=== PATIENT | female | born 1990 ===

== ENCOUNTER 2016-10-03 22:50 | Inpatient (IN) | payer OTHER ==
[2016-10-04] MEDS ORDERED: Sodium Chloride 0.9% 1,000 ML IV STA (00:27)
[2016-10-04 00:52] LABS: BASO % 0.3 % (0.0-2.0); EOS # 0.1 K/uL (0.0-0.7); EOS % 0.8 % (0.0-4.0); HEMATOCRIT 39.6 % (34.0-47.0); LYMPH # 1.7 K/uL (1.0-4.3); LYMPH % 14.2 % (20.0-40.0); MEAN CELL VOLUME 88.1 fl (81.0-99.0); MEAN CORPUSCULAR HEMOGLOBIN 29.5 pg (27.0-31.0); MEAN CORPUSCULAR HGB CONC 33.5 g/dL (33.0-37.0); MEAN PLATELET VOLUME 9.2 fl (7.2-11.7); MONO # 0.6 K/uL (0.0-0.8); MONO % 4.7 % (0.0-10.0); NEUT # 9.6 K/uL (1.8-7.0); RED CELL DISTRIBUTION WIDTH 12.9 % (11.5-14.5)
[2016-10-04 01:03] LABS: ALKALINE PHOSPHATASE 68 U/L (38-126); ALT/SGPT 58 U/L (9-52); AST/SGOT 41 U/L (14-36); BILIRUBIN,TOTAL 1.2 mg/dl (0.2-1.3); BLOOD UREA NITROGEN 9 mg/dl (7-17); CALCIUM 9.4 mg/dL (8.4-10.2); CARBON DIOXIDE 23 mmol/L (22-30); CHLORIDE 105 mmol/L (98-107); GFR AFRICAN-AMERICAN > 60; GLUCOSE,RANDOM 101 mg/dL (65-105); LIPASE 74 U/L (23-300); POTASSIUM 4.3 MMOL/L (3.6-5.0); SODIUM 144 mmol/l (132-148); TOTAL PROTEIN 8.2 G/DL (6.3-8.2)
--- NOTE | 2016-10-04 03:23 | ED PDOC ---
HPI: Abdomen Time Seen by Provider: 10/03/16 23:44 Chief Complaint (Nursing): Abdominal Pain Chief Complaint (Provider): Abdominal Pain History Per: Patient History/Exam Limitations: no limitations Onset/Duration Of Symptoms: Days (2) Current Symptoms Are (Timing): Still Present Severity: Moderate Location Of Pain/Discomfort: Diffuse Associated Symptoms: Nausea, Vomiting Additional Complaint(s): Pati Das is a 26 y/o female presenting to the ER on 10/04/2016 with complaints of diffuse abdominal pain x2 days. Patient states abdominal pain today resembles a prior presentation a few years ago when she was diagnosed with obstruction, prompting a visit to the ED. Associated symptoms include nausea and vomiting. Reports bowel movements are normal. Of note, patient reports having an appendectomy performed 5 days ago for a perforated appendix. Past Medical History Reviewed: Historical Data, Nursing Documentation, Vital Signs Vital Signs: Last Vital Signs Temp 98.3 F 10/03/16 23:36 Pulse 70 10/03/16 23:36 Resp 18 10/03/16 23:36 BP 129/75 10/03/16 23:36 Pulse Ox 100 10/04/16 05:27 - Surgical History Surgical History: Appendectomy - Family History Family History: States: Unknown Family Hx - Social History Current smoker - smoking cessation education provided: No Alcohol: None Drugs: Denies - Allergies Allergies/Adverse Reactions: Allergies Allergy/AdvReac Type Severity Reaction Status Date / Time No Known Allergies Allergy Verified 03/04/14 21:17 Review of Systems ROS Statement: Except As Marked, All Systems Reviewed And Found Negative Constitutional: Negative for: Fever Gastrointestinal: Positive for: Nausea, Vomiting, Abdominal Pain (diffuse ) Physical Exam - Reviewed Nursing Documentation Reviewed: Yes Vital Signs Reviewed: Yes - Physical Exam Appears: Positive for: Non-toxic, No Acute Distress Head Exam: Positive for: ATRAUMATIC, NORMOCEPHALIC Skin: Positive for: Normal Color, Warm, Dry Eye Exam: Positive for: Normal appearance ENT: Positive for: Normal ENT Inspection Neck: Positive for: Normal, Painless ROM, Supple Cardiovascular/Chest: Positive for: Regular Rate, Rhythm. Negative for: Murmur Respiratory: Positive for: Normal Breath Sounds. Negative for: Wheezing, Respiratory Distress Gastrointestinal/Abdominal: Positive for: Tenderness (diffuse ), Distended ( mild ), Other (hyperactive bowel sounds ) Extremity: Positive for: Normal ROM. Negative for: Deformity, Swelling Neurologic/Psych: Positive for: Alert, Oriented (x3). Negative for: Motor/ Sensory Deficits - Laboratory Results Result Diagrams: 10/04/16 00:48 10/04/16 00:48 - ECG O2 Sat by Pulse Oximetry: 100 Medical Decision Making Medical Decision Makin:44 Initial Impression- Abdominal Pain Initial Plan- * US Abdomen * Urine * Urine Dip * Lipase * Morphine 4 mg IV * Sodium Chloride * Toradol 15 mg IVP US Abdomen reviewed, shows obstructed air/fluid pattern. CT scan has been ordered. Pt was re-evaluated. Reports improved condition after toradol. Labs reviewed, all WNL. 0520 - Pt reports return of pain. Morphine ordered. SBO on CT. Discussed admission with Dr. Chicas. Documented by Zandra Alfaro, acting as a scribe for Faviola Cerrato PA-C. All medical record entries made by the Scribe were at my direction and personally dictated by me. I have reviewed the chart and agree that the record accurately reflects my personal performance of the history, physical exam, medical decision making, and the department course for this patient. I have also personally directed, reviewed, and agree with the discharge instructions and disposition. Disposition - Clinical Impression Clinical Impression: Small bowel obstruction - Patient ED Disposition Is Patient to be Admitted: Yes Counseled Patient/Family Regarding: Diagnosis - Disposition Disposition Time: 05:53 Condition: STABLE - Pt Status Changed To: Hospital Disposition Of: Inpatient - Admit Certification Admit to Inpatient:: After my assessment, the patient will require hospitalization for at least two midnights. This is because of the severity of symptoms shown, intensity of services needed, and/or the medical risk in this patient being treated as an outpatient. - POA Present On Arrival: None
[2016-10-04] MEDS ORDERED: Iohexol 300 50 ML ONE (04:42)
[2016-10-04] MEDS ORDERED: Sodium Chloride 0.9% 50 ML IV ONE (04:43)
--- NOTE | 2016-10-04 05:59 | CP.PCM.HP ---
History of Present Illness - History of Present Illness History of Present Illness: PCP: None Chief Complaint: Abdominal Pain/vomiting HPI: 26 years old female with Hx of Perforated Appendectomy in 2010 and SBO in 2011 treated conservatively with NG tube suctioning, comes with 3 days of intermittent,crampy across the left and right upper quadrants of the abdomen.The pain increases if she eats or change her position, it has the sensation as when she had the prior SBO.She induced vomiting because of the nausea and no spontaneous vomiting. She had her last bowel movement on the AM of this admission. No Fever, dysuria nor urinary frequency. no Alcohol nor hx of pancreatitis. PMH: No chronic diseases PSH: Perforated Appendectomy 01/31/2011; SBO 03/12/2011 with conservative management. SH: no Alconol use; no smoking; No illegal drug use; live with FH: No known family hx Allergies: NKDA Present on Admission - Present on Admission Any Indicators Present on Admission: No History of DVT/PE: No History of Uncontrolled Diabetes: No Urinary Catheter: No Decubitus Ulcer Present: No Review of Systems - Constitutional Constitutional: absent: Anorexia, Chills, Fatigue, Fever, Headache - EENT Eyes: absent: Diplopia, Floaters, Photophobia, Requires Corrective Lenses, Sees Flashes, Other Visual Disturbances Ears: absent: Decreased Hearing, Ear Discharge, Ear Pain, Tinnitus Nose/Mouth/Throat: absent: Epistaxis, Nasal Congestion, Nasal Discharge, Sinus Pain, Sinus Pressure, Sore Throat - Cardiovascular Cardiovascular: absent: Chest Pain, Dyspnea, Edema, Orthopnea - Respiratory Respiratory: absent: Cough, Dyspnea, Wheezing - Gastrointestinal Gastrointestinal: Abdominal Pain, Nausea, Vomiting. absent: Diarrhea - Genitourinary Genitourinary: absent: Dysuria, Hematuria, Urinary Frequency, Freq UTI - Musculoskeletal Musculoskeletal: absent: Abnormal Gait, Arthralgias - Integumentary Integumentary: absent: Pruritus, Rash, Skin Ulcer, Sores, Striae, Swelling - Neurological Neurological: absent: Dizziness, Focal Weakness, Headaches, Vertigo - Psychiatric Psychiatric: absent: Anxiety, Depression, Panic Attacks - Endocrine Endocrine: absent: Palpitations, Polydipsia, Polyphagia, Polyuria - Hematologic/Lymphatic Hematologic: absent: Easy Bleeding, Easy Bruising Past Patient History - Past Medical History & Family History Past Medical History?: Yes - Past Social History Smoking Status: Never Smoked Chewing Tobacco Use: No Cigar Use: No Alcohol: None Drugs: Denies Home Situation {Lives}: With Family - CARDIAC Hx Cardiac Disorders: No - PULMONARY Hx Respiratory Disorders: No - NEUROLOGICAL Hx Neurological Disorder: No - HEENT Hx HEENT Problems: No - RENAL Hx Chronic Kidney Disease: No - ENDOCRINE/METABOLIC Hx Endocrine Disorders: No - HEMATOLOGICAL/ONCOLOGICAL Hx Blood Disorders: No - INTEGUMENTARY Hx Dermatological Problems: No - MUSCULOSKELETAL/RHEUMATOLOGICAL Hx Musculoskeletal Disorders: No - GASTROINTESTINAL Hx Gastrointestinal Disorders: No - GENITOURINARY/GYNECOLOGICAL Hx Genitourinary Disorders: No - PSYCHIATRIC Hx Psychophysiologic Disorder: No Hx Substance Use: No - SURGICAL HISTORY Hx Surgeries: Yes Hx Appendectomy: Yes - ANESTHESIA Hx Anesthesia: Yes Hx Anesthesia Reactions: No Meds Allergies/Adverse Reactions: Allergies Allergy/AdvReac Type Severity Reaction Status Date / Time No Known Allergies Allergy Verified 03/04/14 21:17 Physical Exam - Constitutional Appears: No Acute Distress - Head Exam Head Exam: ATRAUMATIC, NORMAL INSPECTION, NORMOCEPHALIC - Eye Exam Eye Exam: EOMI, Normal appearance Pupil Exam: NORMAL ACCOMODATION, PERRL - ENT Exam ENT Exam: Mucous Membranes Moist, Normal Exam, Normal External Ear Exam, Normal Oropharynx - Neck Exam Neck exam: Positive for: Full Rom, Normal Inspection. Negative for: Lymphadenopathy, Tenderness - Respiratory Exam Respiratory Exam: Clear to Auscultation Bilateral. absent: Rales, Rhonchi, Wheezes - Cardiovascular Exam Cardiovascular Exam: REGULAR RHYTHM, RRR, +S1, +S2. absent: Gallop, Rubs - GI/Abdominal Exam Additional comments: Flat, Soft Decreased owel sounds, no guarding, no rebound tenderness. - Rectal Exam Rectal Exam: Deferred - Extremities Exam Extremities exam: Positive for: full ROM, normal inspection. Negative for: calf tenderness, pedal edema - Back Exam Back exam: NORMAL INSPECTION. absent: CVA tenderness (L), CVA tenderness (R) - Neurological Exam Neurological exam: Alert, CN II-XII Intact, Oriented x3, Reflexes Normal - Psychiatric Exam Psychiatric exam: Normal Affect, Normal Mood - Skin Skin Exam: Dry, Intact, Normal Color, Warm Results - Vital Signs Recent Vital Signs: Last Vital Signs Temp 98.3 F 10/03/16 23:36 Pulse 70 10/03/16 23:36 Resp 18 10/03/16 23:36 BP 129/75 10/03/16 23:36 Pulse Ox 100 10/04/16 05:53 - Labs Result Diagrams: 10/04/16 00:48 10/04/16 00:48 Labs: Laboratory Results - last 24 hr 10/04/16 00:48 WBC 12.0 H RBC 4.49 Hgb 13.2 Hct 39.6 MCV 88.1 MCH 29.5 MCHC 33.5 RDW 12.9 Plt Count 251 MPV 9.2 Neut % (Auto) 80.0 H Lymph % (Auto) 14.2 L [place] % (Auto) 4.7 Eos % (Auto) 0.8 Baso % (Auto) 0.3 Neut # 9.6 H Lymph # 1.7 [place] # 0.6 Eos # 0.1 Baso # 0.0 Sodium 144 Potassium 4.3 Chloride 105 Carbon Dioxide 23 Anion Gap 21 H BUN 9 Creatinine 0.6 L Est GFR ( Amer) > 60 Est GFR (Non-Af Amer) > 60 Random Glucose 101 Calcium 9.4 Total Bilirubin 1.2 AST 41 H ALT 58 H Alkaline Phosphatase 68 Total Protein 8.2 Albumin 4.0 Globulin 4.1 H Albumin/Globulin Ratio 1.0 Lipase 74 - Imaging and Cardiology CT scan - abdomen Status: Report reviewed by me Additional comment: FINDINGS: Lower thorax: No acute findings. ABDOMEN: Liver: Unremarkable. No mass. Gallbladder and bile ducts: Unremarkable. No calcified stones. No ductal dilation. Pancreas: Unremarkable. No mass. No ductal dilation. Spleen: Unremarkable. No splenomegaly. Adrenals: Unremarkable. No mass. Kidneys and ureters: Incidental note of accessory retroaortic left renal vein. No hydronephrosis. Stomach and bowel: Mild distention of the stomach with fluid and food. Mildly distended segments of fluid-filled small bowel with air-fluid levels. The distal small bowel is collapsed and findings are consistent with small bowel obstruction. There is a point of transition in the central pelvis near midline. No mucosal thickening. Appendix: There are no changes of appendicitis. A normal appendix is not seen. PELVIS: Bladder: Unremarkable. No mass. Reproductive: Unremarkable as visualized. ABDOMEN and PELVIS: Intraperitoneal space: Minimal free fluid in the pelvis with a Hounsfield measurement of 15. No free air. Bones/joints: No acute fracture. No dislocation. Soft tissues: Unremarkable. Vasculature: See above. Lymph nodes: Unremarkable. No enlarged lymph nodes. IMPRESSION: 1. Small bowel obstruction. There is a point of transition in the central pelvis near midline and likely reflects an adhesion. 2. Minimal free fluid in the pelvis which is likely reactive. US - abdomen Status: Report reviewed by me Additional comment: FINDINGS: Liver: The liver demonstrates no focal defects and measures 13.3 cm. There is hepatopetal portal flow. No intrahepatic bile duct dilation. Gallbladder: The gallbladder demonstrates no wall thickening measuring 3 mm. No gallstones are identified. There is a negative sono Guerin's sign. Common bile duct: The CBD measures 3 mm. No stones. No dilation. Pancreas: The pancreas is grossly normal. Right kidney: The right kidney is normal measuring 10.4 cm. No stones. No hydronephrosis. Aorta: The aorta is of normal size. No aneurysm. Inferior vena cava: The IVC is patent. IMPRESSION: Negative right upper quadrant sonogram. Assessment & Plan - Assessment and Plan (Free Text) Assessment: #. SBO #. Leukocytosis Plan: 26 years old female with Hx of Perforated Appendectomy in 2010 and SBO in 2012 treated conservatively with NG tube suctioning, comes with 3 days of intermittent,crampy pain across the left and right upper quadrants of the abdomen.The pain increases if she eats or change her position, it has the sensation as when she had the prior SBO.She induced vomiting because of the nausea and no spontaneous vomiting. She had her last bowel movement on the AM of this admission. #. SBO Most likely partial obstruction as the patient had a bowel movement on the second day of the abdominal pains. - consult Surgery Dr Spence - NPO - IV fluids - Pain management - NG tube if patient continues to vomit. - follow X ray of Obstructive series, Erect and supine abdomen. #. Leukocytosis - follow WBC #. Stress ulcer prophylaxis with Pepcid. #. DVT prophylaxis with SCD #. Code status: Full - Date & Time Date: 10/04/16 Time: 05:59
[2016-10-04] MEDS: Lactated Ringer's 1,000 ML IV SCH ×3 (06:44→22:57)
--- NOTE | 2016-10-04 07:43 | CP.PCM.CON ---
<Aaron Morgan - Last Filed: 10/04/16 07:32> History of Present Illness - History of Present Illness History of Present Illness: General Surgery Re: SBO HPI: 26F presented to ED c/o general abdominal pain x 2 days. She induced emesis 1 time with some relief. Last BM was yesterday evening and was normal. Pain is similar to a prior episode of SBO she had 4 years ago and this is why she came to the ED. At that time, she was treated with NGT and the problem resolved. Currently her pain is controlled with meds and her only other complaint is about a chronic skin condition she has had for years. PMH: Skin rash resembling psoriasis PSH: Ex lap for perforated appendix SH: Occasional EtOH, No tobacco or drug use All: NKDA Meds: Advil Review of Systems - Review of Systems All systems: reviewed and no additional remarkable complaints except (as per HPI ) Past Patient History - Past Social History Alcohol: None Drugs: Denies - PSYCHIATRIC Hx Substance Use: No - SURGICAL HISTORY Hx Appendectomy: Yes Meds Allergies/Adverse Reactions: Allergies Allergy/AdvReac Type Severity Reaction Status Date / Time No Known Allergies Allergy Verified 10/07/16 10:41 - Medications Medications: Current Medications Lactated Ringer's (Lactated Ringer's) 1,000 mls @ 125 mls/hr IV .Q8H FAY Last Admin: 10/04/16 06:44 Dose: 125 mls/hr Ketorolac Tromethamine (Toradol) 30 mg IVP Q6 PRN PRN Reason: Pain, severe (8-10) Ketorolac Tromethamine (Toradol) 15 mg IVP Q6 PRN PRN Reason: Pain, moderate (4-7) Physical Exam - Constitutional Appears: Non-toxic, No Acute Distress - Head Exam Head Exam: ATRAUMATIC, NORMOCEPHALIC - Eye Exam Eye Exam: EOMI. absent: Scleral icterus - ENT Exam ENT Exam: Mucous Membranes Moist Additional comments: trachea midline - Respiratory Exam Respiratory Exam: NORMAL BREATHING PATTERN. absent: Respiratory Distress - Cardiovascular Exam Cardiovascular Exam: RRR, +S1, +S2 - GI/Abdominal Exam GI & Abdominal Exam: Guarding (mild), Soft, Tenderness (diffuse). absent: Distended, Firm, Rigid Additional comments: midline scar - Rectal Exam Rectal Exam: Deferred - Extremities Exam Extremities exam: Positive for: pedal pulses present. Negative for: calf tenderness, pedal edema - Back Exam Back exam: absent: CVA tenderness (L), CVA tenderness (R) - Neurological Exam Neurological exam: Alert, Oriented x3 - Psychiatric Exam Psychiatric exam: Normal Affect, Normal Mood - Skin Skin Exam: Dry, Warm Results - Vital Signs Recent Vital Signs: Last Vital Signs Temp 99 F 10/04/16 06:19 Pulse 70 10/04/16 06:19 Resp 16 10/04/16 06:19 BP 130/89 10/04/16 06:19 Pulse Ox 98 10/04/16 06:19 - Labs Result Diagrams: 10/04/16 00:48 10/04/16 00:48 - Imaging and Cardiology CT scan - abdomen Status: Image reviewed by me, Report reviewed by me Assessment & Plan - Assessment and Plan (Free Text) Assessment: 26F with SBO likely 2/2 adhesions Plan: NPO IVF Zofran Analgesia NGT if vomiting occurs D/W Dr. Bebe Morgan PGY3 <Rio Spence B - Last Filed: 10/09/16 10:42> Results - Vital Signs Recent Vital Signs: Last Vital Signs Temp 99.3 F 10/06/16 16:12 Pulse 71 10/06/16 16:12 Resp 20 10/06/16 16:12 BP 115/72 10/06/16 16:12 Pulse Ox 98 10/06/16 16:12 - Labs Result Diagrams: 10/05/16 08:21 10/05/16 08:21 Attending/Attestation - Attestation I have personally seen and examined this patient.: Yes I have fully participated in the care of the patient.: Yes I have reviewed all pertinent clinical information: Yes Notes (Text): 10/09/16 10:42 Pt was seen and examined at bedside on 10/04/16 Agree with above note and assessment Pt with PSBO Gradually improving C.w current mx Plan d.w pt in detail Risk and benefit explained in detail.
--- NOTE | 2016-10-04 09:31 | CT ---
PROCEDURE: CT Abdomen and Pelvis with contrast HISTORY: obstruction on x-ray, abdominal pain, nausea COMPARISON: Comparison is made to the previous study dated 05/25/2012 TECHNIQUE: Axial and reformatted coronal and sagittal CT images of the abdomen and pelvis were obtained after IV contrast administration. Contrast dose: 95 mL of Omnipaque 300 Radiation dose: Total exam DLP = 1067.66 mGy-cm. This CT exam was performed using one or more of the following dose reduction techniques: Automated exposure control, adjustment of the mA and/or kV according to patient size, and/or use of iterative reconstruction technique. FINDINGS: LOWER THORAX: Unremarkable. LIVER: Unremarkable. No gross lesion or ductal dilatation. GALLBLADDER AND BILE DUCTS: Unremarkable. PANCREAS: Unremarkable. No gross lesion or ductal dilatation. SPLEEN: Unremarkable. ADRENALS: Unremarkable. No mass. KIDNEYS AND URETERS: Unremarkable. No hydronephrosis. No solid mass. VASCULATURE: Unremarkable. No aortic aneurysm. BOWEL: There is high-grade small bowel obstruction. The point of transition is likely at the central mid to upper pelvis at the midline. The distal small bowel loops and the large bowel are collapsed. No evidence of pneumatosis or free air. No evidence of air in the portal vein. APPENDIX: The appendix is not visualized. Correlate clinically for possible prior appendectomy. PERITONEUM: There is a small amount of free fluid in the pelvis. No evidence of free air. LYMPH NODES: Unremarkable. No enlarged lymph nodes. BLADDER: Unremarkable. REPRODUCTIVE: Unremarkable. BONES: No acute fracture. OTHER FINDINGS: None. IMPRESSION: Findings suggestive of high-grade small bowel obstruction. transitional point is seen at the midline mid to upper pelvis likely due to adhesions. Small amount of free fluid in the lower abdomen and pelvis. No evidence of pneumatosis intestinalis or free air. No other acute pathology noted in the abdomen and pelvis. Preliminary report was submitted by [facility].
--- NOTE | 2016-10-04 10:43 | US ---
HISTORY: Epigastric and right upper quadrant pain. COMPARISON: None. TECHNIQUE: Sonographic evaluation of the abdomen. FINDINGS: LIVER: Measures 13.3 cm. Patent portal vein. Portal venous flow: Hepatopetal. Unremarkeable echogenicity of the liver parenchyma. No mass. No intrahepatic bile duct dilatation. GALLBLADDER: Unremarkable. No gallstones. COMMON BILE DUCT: Measures 2.9 mm. No stones. No dilatation. PANCREAS: Unremarkable as visualized. No mass. No ductal dilatation. RIGHT KIDNEY: Measures 4.1 x 10.4cm. Normal echogenicity. No calculus, mass, or hydronephrosis. AORTA: No aneurysmal dilatation. IVC: Unremarkable. OTHER FINDINGS: None. IMPRESSION: No significant or acute findings to account for/ related to the clinical presentation. Concordant results (preliminary interpretation) provided by [facility]. Procedure Completed: 03:12. Preliminary ([facility]) Report: Dictated and Authenticated: 03:46. Final Interpretation: 10:41. October 04, 2016.
--- NOTE | 2016-10-04 13:22 | RAD ---
HISTORY: diffuse abdominal pain, hx obstruction COMPARISON: 05/26/2012. Abdominal series. October 04, 2016. CT abdomen and pelvis. FINDINGS: BOWEL: Small bowel dilatation disproportionate to that seen in the colon. Likely early/incomplete small bowel obstruction. BONES: Normal. OTHER FINDINGS: None. IMPRESSION: Early/incomplete small bowel obstruction. Findings are better appreciated on CT abdomen and pelvis performed 05:44. October 04, 2016.
[2016-10-05] MEDS: Lactated Ringer's 1,000 ML IV SCH ×2 (01:29→06:36)
--- NOTE | 2016-10-05 07:55 | CP.PCM.PN ---
<Nathan Chen - Last Filed: 10/05/16 07:56> Subjective - Date & Time of Evaluation Date of Evaluation: 10/05/16 Time of Evaluation: 06:50 - Subjective Subjective: General Surgery-Progress Note Pt S&E at bedside. Overnight bowel movements x2, diarrhea in consistency. Mild LLQ pain controlled with pain medication. Tolerating CLD. Objective - Vital Signs/Intake and Output Vital Signs (last 24 hours): Temp Pulse Resp BP Pulse Ox 98.8 F 67 20 118/74 97 10/04/16 21:20 10/04/16 21:20 10/04/16 21:20 10/04/16 21:20 10/04/16 21:20 - Medications Medications: Current Medications Lactated Ringer's (Lactated Ringer's) 1,000 mls @ 125 mls/hr IV .Q8H FAY Last Admin: 10/05/16 06:36 Dose: Not Given Ketorolac Tromethamine (Toradol) 30 mg IVP Q6 PRN PRN Reason: Pain, severe (8-10) Ketorolac Tromethamine (Toradol) 15 mg IVP Q6 PRN PRN Reason: Pain, moderate (4-7) Last Admin: 10/05/16 06:17 Dose: 15 mg Morphine Sulfate (Morphine) 4 mg IVP Q4 PRN PRN Reason: Pain, severe (8-10) Ondansetron HCl (Zofran Inj) 4 mg IVP Q4 PRN PRN Reason: Nausea/Vomiting - Constitutional Appears: Non-toxic, No Acute Distress - Head Exam Head Exam: ATRAUMATIC, NORMAL INSPECTION - Eye Exam Eye Exam: EOMI, Normal appearance - Respiratory Exam Respiratory Exam: NORMAL BREATHING PATTERN. absent: Chest Wall Tenderness, Decreased Breath Sounds - GI/Abdominal Exam GI & Abdominal Exam: Soft, Tenderness (LLQ). absent: Distended, Guarding, Rigid - Extremities Exam Extremities Exam: Normal Inspection. absent: Pedal Edema - Neurological Exam Neurological Exam: Alert, Awake, Oriented x3 - Psychiatric Exam Psychiatric exam: Normal Affect, Normal Mood - Skin Skin Exam: Intact, Normal Color, Warm Assessment and Plan - Assessment and Plan (Free Text) Assessment: 26F with SBO likely 2/2 adhesions Plan: CLD IVF Zofran prn nausea Analgesia Continue to monitor D/W Dr. Spence <Rio Spence - Last Filed: 10/09/16 10:47> Objective - Vital Signs/Intake and Output Vital Signs (last 24 hours): Temp Pulse Resp BP Pulse Ox 99.3 F 71 20 115/72 98 10/06/16 16:12 10/06/16 16:12 10/06/16 16:12 10/06/16 16:12 10/06/16 16:12 - Labs Labs: 10/05/16 08:21 10/05/16 08:21 Attending/Attestation - Attestation I have personally seen and examined this patient.: Yes I have fully participated in the care of the patient.: Yes I have reviewed all pertinent clinical information, including history, physical exam and plan: Yes Notes (Text): 10/09/16 10:47 Pt was seen and examined at bedside on 10/05/16 Agree with above note and assessment Pt with resolving PSBO Pt can be DC home tomorrow Plan dRenettaw pt in detail Risk and benefit explained in detail.
[2016-10-05 08:34] LABS: BASO % 0.3 % (0.0-2.0); EOS # 0.1 K/uL (0.0-0.7); EOS % 1.2 % (0.0-4.0); HEMATOCRIT 35.2 % (34.0-47.0); LYMPH # 2.4 K/uL (1.0-4.3); LYMPH % 34.7 % (20.0-40.0); MEAN CELL VOLUME 87.5 fl (81.0-99.0); MEAN CORPUSCULAR HGB CONC 34.2 g/dL (33.0-37.0); MEAN PLATELET VOLUME 9.3 fl (7.2-11.7); MONO # 0.5 K/uL (0.0-0.8); MONO % 7.3 % (0.0-10.0); NEUT # 3.8 K/uL (1.8-7.0); NEUT % 56.5 % (50.0-75.0); NRBC % 0.1 % (0.0-0.0); RED CELL DISTRIBUTION WIDTH 12.9 % (11.5-14.5); WHITE BLOOD COUNT 6.8 K/uL (4.8-10.8)
[2016-10-05 08:44] LABS: ALKALINE PHOSPHATASE 58 U/L (38-126); ALT/SGPT 47 U/L (9-52); AST/SGOT 29 U/L (14-36); BLOOD UREA NITROGEN 7 mg/dl (7-17); CALCIUM 8.9 mg/dL (8.4-10.2); CARBON DIOXIDE 26 mmol/L (22-30); CHLORIDE 106 mmol/L (98-107); GFR AFRICAN-AMERICAN > 60; GLUCOSE,RANDOM 85 mg/dL (65-105); POTASSIUM 4.4 MMOL/L (3.6-5.0); SODIUM 143 mmol/l (132-148); TOTAL PROTEIN 6.6 G/DL (6.3-8.2)
--- NOTE | 2016-10-05 14:53 | RAD ---
PROCEDURE: Radiographs of the chest and abdomen (obstructive series) now HISTORY: Small bowel obstruction. COMPARISON: October 04, 2016. CT abdomen and pelvis. TECHNIQUE: AP radiograph of the chest, with upright and supine radiographs of the abdomen. FINDINGS: CHEST: Lungs: Clear. Cardiovascular: Normal size heart. No pulmonary vascular congestion. Pleura: No pleural fluid. No pneumothorax. Other findings: None. ABDOMEN AND PELVIS: Bowel: Persistent small bowel obstruction. Disproportionate dilatation of proximal and mid small bowel loops compared to decompressed colon. No free air Free air: None. Bones: Unremarkable. Other findings: None. IMPRESSION: Persistent approximately stable small bowel obstruction.
--- NOTE | 2016-10-05 18:35 | CP.PCM.PN ---
Subjective - Date & Time of Evaluation Date of Evaluation: 10/05/16 Time of Evaluation: 12:00 - Subjective Subjective: No fevr abd pain better no N/V had BM this am no CP no SOB Objective - Vital Signs/Intake and Output Vital Signs (last 24 hours): Temp Pulse Resp BP Pulse Ox 98 F 62 18 112/73 100 10/05/16 17:09 10/05/16 17:09 10/05/16 17:09 10/05/16 17:09 10/05/16 17:09 - Medications Medications: Current Medications Lactated Ringer's (Lactated Ringer's) 1,000 mls @ 125 mls/hr IV .Q8H FAY Last Admin: 10/05/16 06:36 Dose: Not Given Ketorolac Tromethamine (Toradol) 30 mg IVP Q6 PRN PRN Reason: Pain, severe (8-10) Ketorolac Tromethamine (Toradol) 15 mg IVP Q6 PRN PRN Reason: Pain, moderate (4-7) Last Admin: 10/05/16 06:17 Dose: 15 mg Morphine Sulfate (Morphine) 4 mg IVP Q4 PRN PRN Reason: Pain, severe (8-10) Ondansetron HCl (Zofran Inj) 4 mg IVP Q4 PRN PRN Reason: Nausea/Vomiting - Labs Labs: 10/05/16 08:21 10/05/16 08:21 - Constitutional Appears: No Acute Distress - Head Exam Head Exam: NORMAL INSPECTION, NORMOCEPHALIC - Eye Exam Eye Exam: EOMI, Normal appearance, PERRL Pupil Exam: NORMAL ACCOMODATION - ENT Exam ENT Exam: Mucous Membranes Moist, Normal External Ear Exam - Neck Exam Neck Exam: Full ROM. absent: Meningismus - Respiratory Exam Respiratory Exam: NORMAL BREATHING PATTERN. absent: Respiratory Distress - Cardiovascular Exam Cardiovascular Exam: REGULAR RHYTHM, +S1, +S2 - GI/Abdominal Exam GI & Abdominal Exam: Soft, Normal Bowel Sounds. absent: Tenderness - Extremities Exam Extremities Exam: Full ROM, Normal Capillary Refill, Normal Inspection. absent : Calf Tenderness, Pedal Edema - Back Exam Back Exam: Full ROM, NORMAL INSPECTION. absent: CVA tenderness (L), CVA tenderness (R), paraspinal tenderness - Neurological Exam Neurological Exam: Alert, Awake, CN II-XII Intact, Normal Gait, Oriented x3 Neuro motor strength exam: Left Upper Extremity: 5, Right Upper Extremity: 5, Left Lower Extremity: 5, Right Lower Extremity: 5 - Psychiatric Exam Psychiatric exam: Normal Affect, Normal Mood - Skin Skin Exam: Dry, Normal Color, Warm Assessment and Plan (1) SBO (small bowel obstruction) Status: Acute - Assessment and Plan (Free Text) Assessment: 26 years old female with Hx of Perforated Appendectomy in 2010 and SBO in 2011 treated conservatively with NG tube suctioning, comes with 3 days of intermittent,crampy pain across the left and right upper quadrants of the abdomen.The pain increases if she eats or change her position similar to previous pain when she had SBPO. 1. High Grade SBO - CT of abd : High grade SBO - consulted Surgery Dr Spence - Pt's pain better today and had some BM this am - will start Clear liquid diet - IV fluids hydration - Pain management - NG tube if patient vomits - Obstructive series, Erect and supine abdomen - to ff up 2. Leukocytosis likely reactive - WBC ct normalized #. Stress ulcer prophylaxis with Pepcid. #. DVT prophylaxis with SCD #. Code status: Full
[2016-10-05] MEDS ORDERED: Lactated Ringer's 1,000 ML IV SCH (18:49)
[2016-10-06 08:09] VITALS: RESP 20; O2SAT 98
--- NOTE | 2016-10-06 10:00 | CP.PCM.PN ---
Subjective - Date & Time of Evaluation Date of Evaluation: 10/06/16 Time of Evaluation: 09:00 - Subjective Subjective: General Surgery-Progress Note Pt S&E at bedside. Overnight bowel movements x2, diarrhea in consistency. Mild LLQ pain controlled with pain medication. Tolerating regular diet without issue. Objective - Vital Signs/Intake and Output Vital Signs (last 24 hours): Temp Pulse Resp BP Pulse Ox 98.5 F 88 20 105/66 98 10/06/16 08:08 10/06/16 08:08 10/06/16 08:08 10/06/16 08:08 10/06/16 08:08 - Medications Medications: Current Medications Ketorolac Tromethamine (Toradol) 30 mg IVP Q6 PRN PRN Reason: Pain, severe (8-10) Ketorolac Tromethamine (Toradol) 15 mg IVP Q6 PRN PRN Reason: Pain, moderate (4-7) Last Admin: 10/06/16 08:09 Dose: 15 mg Morphine Sulfate (Morphine) 4 mg IVP Q4 PRN PRN Reason: Pain, severe (8-10) Ondansetron HCl (Zofran Inj) 4 mg IVP Q4 PRN PRN Reason: Nausea/Vomiting - Labs Labs: 10/05/16 08:21 10/05/16 08:21 - Constitutional Appears: Well, Non-toxic, No Acute Distress - ENT Exam ENT Exam: Mucous Membranes Moist, Normal Exam - Respiratory Exam Respiratory Exam: NORMAL BREATHING PATTERN. absent: Chest Wall Tenderness, Decreased Breath Sounds - GI/Abdominal Exam GI & Abdominal Exam: Soft, Tenderness (mild to LLQ). absent: Distended, Firm, Guarding, Rigid - Neurological Exam Neurological Exam: Alert, Awake, Normal Gait, Oriented x3 - Psychiatric Exam Psychiatric exam: Normal Affect, Normal Mood - Skin Skin Exam: Intact, Normal Color, Warm Assessment and Plan - Assessment and Plan (Free Text) Assessment: 26F with SBO Plan: Pt can continue regular diet. IVF Zofran prn nausea Analgesia Continue to monitor Pt is stable from surgical standpoint for discharge home. Will follow-up with Dr. Sevilla on outpatient basis within 10 days. Instructed is symptoms whoud reappear or worsen present to urgent care facility. D/W Dr. Spence
--- NOTE | 2016-10-06 14:26 | CP.PCM.DIS ---
Provider - Provider Date of Admission: 10/04/16 05:56 Attending physician: Zenon Chicas Primary care physician: Zenon Chicas Consults: Surgery Dr. Suarez Time Spent in preparation of Discharge (in minutes): 40 Hospital Course - Lab Results Lab Results: Most Recent Lab Values WBC 6.8 K/uL (4.8-10.8) 10/05/16 08:21 RBC 4.03 Mil/uL (3.80-5.20) 10/05/16 08:21 Hgb 12.1 g/dL (12.0-16.0) 10/05/16 08:21 Hct 35.2 % (34.0-47.0) 10/05/16 08:21 MCV 87.5 fl (81.0-99.0) 10/05/16 08:21 MCH 30.0 pg (27.0-31.0) 10/05/16 08:21 MCHC 34.2 g/dL (33.0-37.0) 10/05/16 08:21 RDW 12.9 % (11.5-14.5) 10/05/16 08:21 Plt Count 223 K/uL (130-400) 10/05/16 08:21 MPV 9.3 fl (7.2-11.7) 10/05/16 08:21 Neut % (Auto) 56.5 % (50.0-75.0) 10/05/16 08:21 Lymph % (Auto) 34.7 % (20.0-40.0) 10/05/16 08:21 [place] % (Auto) 7.3 % (0.0-10.0) 10/05/16 08:21 Eos % (Auto) 1.2 % (0.0-4.0) 10/05/16 08:21 Baso % (Auto) 0.3 % (0.0-2.0) 10/05/16 08:21 Neut # 3.8 K/uL (1.8-7.0) 10/05/16 08:21 Lymph # 2.4 K/uL (1.0-4.3) 10/05/16 08:21 [place] # 0.5 K/uL (0.0-0.8) 10/05/16 08:21 Eos # 0.1 K/uL (0.0-0.7) 10/05/16 08:21 Baso # 0.0 K/uL (0.0-0.2) 10/05/16 08:21 Sodium 143 mmol/l (132-148) 10/05/16 08:21 Potassium 4.4 MMOL/L (3.6-5.0) 10/05/16 08:21 Chloride 106 mmol/L (98-107) 10/05/16 08:21 Carbon Dioxide 26 mmol/L (22-30) 10/05/16 08:21 Anion Gap 15 (10-20) 10/05/16 08:21 BUN 7 mg/dl (7-17) 10/05/16 08:21 Creatinine 0.7 mg/dL (0.7-1.2) 10/05/16 08:21 Est GFR ( Amer) > 60 10/05/16 08:21 Est GFR (Non-Af Amer) > 60 10/05/16 08:21 Random Glucose 85 mg/dL (65-105) 10/05/16 08:21 Calcium 8.9 mg/dL (8.4-10.2) 10/05/16 08:21 Total Bilirubin 1.0 mg/dl (0.2-1.3) 10/05/16 08:21 AST 29 U/L (14-36) 10/05/16 08:21 ALT 47 U/L (9-52) 10/05/16 08:21 Alkaline Phosphatase 58 U/L (38-126) 10/05/16 08:21 Total Protein 6.6 G/DL (6.3-8.2) 10/05/16 08:21 Albumin 3.3 g/dL (3.5-5.0) L 10/05/16 08:21 Globulin 3.3 gm/dL (2.2-3.9) 10/05/16 08:21 Albumin/Globulin Ratio 1.0 (1.0-2.1) 10/05/16 08:21 Lipase 74 U/L (23-300) 10/04/16 00:48 - Hospital Course Hospital Course: 26 year old female (PMHx Perforated Appendectomy 01/2011 and SBO 11/2011) who was admitted on 10/04/16 for complaint of 3 days of intermittent cramping bilateral upper quadrant area. Obstruction Series upon admission and repeat on 10/05/16 showed small bowel obstruction, no free air, disproportional dilatation of proximal mid-small bowel loops compared to decompressed colon. She had Leukocytosis at 12.0 on 10/04/16 and this resolved on 10/05/16 at 6.8. She was treated with Toradol and Morphine as needed for pain. She was evaluated by Surgery Dr. Spence. She was started on Clear Liquids on 10/05/16 and regular diet earlier today 10/06/16 and she tolerated these without incident (NO n/v). She had 2 soft nonbloody/nonblack bowel movements today and is passing flatus. She has some mild cramping periumbilical pain ("not like in the ER") when she walks that comes and goes. She has been cleared by Surgery for discharge. She was instructed to follow up with Dr. Spence in 10 days and to return to the ER if the pain in the abdomen returns to its original intensity, if she experiences any nausea with vomiting, or has not moved her bowels. ROS: Moved bowels 2x today and passing flatus Tolerated her regular breakfast and lunch without n/v or abdominal pain NO chest pain, NO palpitations, NO SOB/Cough/Wheezing, NO burning/pain with urination, NO lightheadedness/dizziness, NO new changes in vision/eye pain, NO new changes in hearing/ear pain, NO paresthesias, NO edema HEENT: NCA, EOMI, PERRLA, NO cervical lymphadenopathy, NO thyromegaly, Oral Mucosa and Nasal Turbinates are moist Cardio:NS1 and NS2, NO M/R/G Respiratory: CTA B/L, NO R/R/W GI: BSx4, Soft, NT, ND, NO HSM, NO guarding/rebound tenderness (patient is laughing when I palpated her entire abdomen) Ext: Pulses are strong and equal, NO edema, Capillary Refill is 2 seconds. Neuro: CN II through XII are grossly intact The following instructions were explained to the patient and a copy of this discharge summary will be provided to patient: 1). If your pain level in the abdomen returns to the level it was when you came to the emergency room, if you experience nausea/vomiting, then please return to the emergency room 2). If you experience pain with eating regular food then you are advancing your diet too quickly. If this happens then start eating softer foods. 3). You must call the office of Surgeon Dr. Martha Spence [phone] for appointment that should take place in 10 days. Jarrett Hall D.O. Discharge Exam - Head Exam Head Exam: NORMAL INSPECTION, NORMOCEPHALIC Discharge Plan - Follow Up Plan Condition: STABLE Disposition: HOME/ ROUTINE
[2016-10-06 16:12] VITALS: BP 115/72; PULSE 71; TEMP 99.3
== END 2016-10-06 17:07 | disposition home or self-care (01) | DRG 181 ==
LOC: H.ER 22:50 → H.ERHOLD 10-04 05:56 → H.MEDSURG1 10-04 10:22
PROVIDERS: ADMIT Internal Medicine; ATTEND Internal Medicine
DX: K56.5 Intestinal adhesions [bands] with obstruction (postinfection) (principal); D72.829 Elevated white blood cell count, unspecified

== ENCOUNTER 2016-10-07 10:12 | Inpatient (IN) | payer OTHER ==
[2016-10-07 10:20] VITALS: BMI 27.8
[2016-10-07] MEDS ORDERED: Sodium Chloride 0.9% 1,000 ML IV STA (11:04)
[2016-10-07 11:24] LABS: BASO % 0.5 % (0.0-2.0); EOS % 0.4 % (0.0-4.0); HEMATOCRIT 39.9 % (34.0-47.0); LYMPH # 1.2 K/uL (1.0-4.3); LYMPH % 16.7 % (20.0-40.0); MEAN CELL VOLUME 87.4 fl (81.0-99.0); MEAN CORPUSCULAR HEMOGLOBIN 29.4 pg (27.0-31.0); MEAN CORPUSCULAR HGB CONC 33.7 g/dL (33.0-37.0); MEAN PLATELET VOLUME 8.7 fl (7.2-11.7); MONO # 0.4 K/uL (0.0-0.8); MONO % 6.1 % (0.0-10.0); NEUT # 5.6 K/uL (1.8-7.0); NEUT % 76.3 % (50.0-75.0); RED CELL DISTRIBUTION WIDTH 12.9 % (11.5-14.5); WHITE BLOOD COUNT 7.4 K/uL (4.8-10.8)
[2016-10-07 11:40] LABS: ALKALINE PHOSPHATASE 67 U/L (38-126); ALT/SGPT 45 U/L (9-52); AST/SGOT 30 U/L (14-36); BILIRUBIN,TOTAL 1.2 mg/dl (0.2-1.3); BLOOD UREA NITROGEN 9 mg/dl (7-17); CALCIUM 9.4 mg/dL (8.4-10.2); CARBON DIOXIDE 27 mmol/L (22-30); CHLORIDE 102 mmol/L (98-107); GFR AFRICAN-AMERICAN > 60; GLUCOSE,RANDOM 106 mg/dL (65-105); LIPASE 80 U/L (23-300); POTASSIUM 3.9 MMOL/L (3.6-5.0); SODIUM 141 mmol/l (132-148); TOTAL PROTEIN 7.8 G/DL (6.3-8.2)
--- NOTE | 2016-10-07 11:44 | ED PDOC ---
HPI: Abdomen Time Seen by Provider: 10/07/16 10:43 Chief Complaint (Nursing): Abdominal Pain History Per: Patient (presents with c/o nausea and vomiting and upper abd pain for 1 day. She was admitted recently for SBO. Review of record confirms her history) History/Exam Limitations: no limitations Outside of [place] travel?: No Current Symptoms Are (Timing): Still Present Severity: Moderate Past Medical History Reviewed: Historical Data, Nursing Documentation, Vital Signs Vital Signs: Last Vital Signs Temp 98.2 F 10/07/16 10:42 Pulse 92 H 10/07/16 10:42 Resp 20 10/07/16 10:42 BP 117/75 10/07/16 10:42 Pulse Ox 97 10/07/16 11:45 - Medical History PMH: Denies: HIV, Chronic Kidney Disease - Surgical History Surgical History: Appendectomy - Family History Family History: States: Unknown Family Hx - Living Arrangements Living Arrangements: With Family - Allergies Allergies/Adverse Reactions: Allergies Allergy/AdvReac Type Severity Reaction Status Date / Time No Known Allergies Allergy Verified 10/07/16 10:41 Review of Systems ROS Statement: Except As Marked, All Systems Reviewed And Found Negative Constitutional: Negative for: Fever, Chills Gastrointestinal: Positive for: Nausea, Vomiting, Abdominal Pain. Negative for : Diarrhea Genitourinary Female: Negative for: Dysuria, Frequency, Hematuria, Vaginal Discharge, Vaginal Bleeding Musculoskeletal: Negative for: Neck Pain, Shoulder Pain Physical Exam - Reviewed Nursing Documentation Reviewed: Yes Vital Signs Reviewed: Yes - Physical Exam Appears: Positive for: Well, Non-toxic, Uncomfortable Head Exam: Positive for: ATRAUMATIC, NORMAL INSPECTION, NORMOCEPHALIC Skin: Positive for: Normal Color, Warm, DRY Eye Exam: Positive for: Normal appearance ENT: Positive for: Normal ENT Inspection Neck: Positive for: Normal Cardiovascular/Chest: Positive for: Regular Rate, Rhythm Respiratory: Positive for: CNT, Normal Breath Sounds Gastrointestinal/Abdominal: Positive for: Bowel Sounds, Soft, Tenderness ( epigastric area) Back: Positive for: Normal Inspection Extremity: Positive for: Normal ROM Neurologic/Psych: Positive for: Alert, Oriented - Laboratory Results Result Diagrams: 10/07/16 11:20 10/07/16 11:20 - ECG O2 Sat by Pulse Oximetry: 97 Disposition - Clinical Impression Clinical Impression: SBO (small bowel obstruction) - Patient ED Disposition Is Patient to be Admitted: Yes Doctor Will See Patient In The: Hospital - Disposition Disposition: Transfer of Care Disposition Time: 12:30 Condition: GUARDED - Pt Status Changed To: Hospital Disposition Of: Inpatient - Admit Certification Admit to Inpatient:: After my assessment, the patient will require hospitalization for at least two midnights. This is because of the severity of symptoms shown, intensity of services needed, and/or the medical risk in this patient being treated as an outpatient.
[2016-10-07 11:58] LABS: RBC URINE 4 /hpf (0-3); URINE BILIRUBIN NEGATIVE (NEGATIVE); URINE BLOOD NEGATIVE (NEGATIVE); URINE COLOR AMBER (YELLOW); URINE GLUCOSE (UA) NEG (Normal); URINE KETONE NEGATIVE (NEGATIVE); URINE LEUKOCYTE ESTERASE SMALL Leu/uL (Negative); URINE PROTEIN 30 mg/dL (NEGATIVE); WBC URINE 10 /hpf (0-5)
--- NOTE | 2016-10-07 12:21 | RAD ---
PROCEDURE: Radiographs of the chest and abdomen (obstructive series) HISTORY: abdominal pain COMPARISON: No prior. TECHNIQUE: AP radiograph of the chest, with upright and supine radiographs of the abdomen. FINDINGS: CHEST: Lungs: Clear. Cardiovascular: Normal size heart. No pulmonary vascular congestion. Pleura: No pleural fluid. No pneumothorax. Other findings: None. ABDOMEN AND PELVIS: Bowel: There is cashews distension of small bowel loops and differential air-fluid levels. The colon is decompressed. There is stool in the ascending colon. Free air: None. Bones: Unremarkable. Other findings: None. IMPRESSION: Cashews distension of small bowel loops with decompressed colon is concerning for acute small bowel obstruction.
--- NOTE | 2016-10-07 14:08 | CP.PCM.HP ---
History of Present Illness - History of Present Illness History of Present Illness: Hospitalist Admission H&P (Patient was seen and examined at 1:00 PM 10/07/16) PMD: NONE CODE STATUS: FULL CODE. NO Living Will/Advance Directive. Designates Francisco Poon [phone] as her Health Care Proxy. CHIEF COMPLAINT: Abdominal Pain, Nausea 26 year old female (PMHx Perforated Appendectomy 01/2011 and SBO 11/2011) who was admitted on 10/04/16 for complaint of 3 days of intermittent cramping bilateral upper quadrant area. Obstruction Series upon admission and repeat on 10/05/16 showed small bowel obstruction, no free air, disproportional dilatation of proximal mid-small bowel loops compared to decompressed colon. She had Leukocytosis at 12.0 on 10/04/16 and this resolved on 10/05/16 at 6.8. She was treated with Toradol and Morphine as needed for pain. She was evaluated by Surgery Dr. Spence. She was started on Clear Liquids on 10/05/16 and regular diet on 10/06/16 and she tolerated these without incident (NO n/v). She had 2 soft nonbloody/nonblack bowel movements on 10/06/16 and she was passing flatus. She had some mild cramping periumbilical pain ("not like in the ER") when she walks that comes and goes. She was cleared by Surgery for discharge. She was instructed to follow up with Dr. Spence in 10 days and to return to the ER if the pain in the abdomen returns to its original intensity, if she experiences any nausea with vomiting, or has not moved her bowels. After she got home, she was doing fine. Around 8 PM 10/06/16 she tried to eat a potato dish with some small amount of cheese but she felt full after just a few bites. Thirty minutes after this, she started to experiene generalized abdominal pain with the greatest intesity in the epigastric area along with nausea and sensation like something was stuck in her throat. She tried to brush her teeth but this intensified the nausea. She had trouble sleep through the night becuase of the nausea. Then this morning as the nausea, the generalized abdominal pain, the sensation of something stuck in her throat was not better she asked her to drive her back to the [facility] ER. ROS: She had a very small bowel movement last night: NOT black/NOT bloody Nausea and the abdominal pain is better after administration of Zofran in the ER Still feels as if something is stuck in her throat Difficulty with deep respirations Headache last night but not now NO chest pain, NO palpitations, NO SOB/Cough/Wheezing, NO burning/pain with urination, NO lightheadedness/dizziness, NO new changes in vision/eye pain, NO new changes in hearing/ear pain, NO paresthesias, NO edema PMHx: Perforated Appendix 01/2011, SBO 11/2011 (treated successfully with NGT placment) PSHx: Perforated Appendix ALL: NKDA, NO food allergies Medications: NONE at home Social Hx: [facility] [email or web address] [facility] [email or web address], Lives with her , NO tobacco, NO alcohol, NO illicit drugs Family Hx: Mom (Tachcardia, HTN), Dad (HTN), Brother x 2 (Healthy), Sister x 1 ( Healthy) Present on Admission - Present on Admission Any Indicators Present on Admission: Yes History of DVT/PE: No History of Uncontrolled Diabetes: No Urinary Catheter: No Decubitus Ulcer Present: No Review of Systems - Review of Systems Review of Systems: Please see HPI Past Patient History - Past Medical History & Family History Past Medical History?: Yes Pertinent Family History: Please see HPI - Past Social History Smoking Status: Never Smoked - CARDIAC Hx Cardiac Disorders: No - PULMONARY Hx Respiratory Disorders: No - NEUROLOGICAL Hx Neurological Disorder: No - HEENT Hx HEENT Problems: No - RENAL Hx Chronic Kidney Disease: No - ENDOCRINE/METABOLIC Hx Endocrine Disorders: No - HEMATOLOGICAL/ONCOLOGICAL Hx Human Immunodeficiency Virus (HIV): No - INTEGUMENTARY Hx Dermatological Problems: No Other/Comment: red, dry rash left middle knuckle, right pinky and around mouth - MUSCULOSKELETAL/RHEUMATOLOGICAL Hx Musculoskeletal Disorders: No Hx Falls: Yes - GASTROINTESTINAL Hx Gastrointestinal Disorders: No - GENITOURINARY/GYNECOLOGICAL Hx Genitourinary Disorders: No - PSYCHIATRIC Hx Psychophysiologic Disorder: No Hx Substance Use: No - SURGICAL HISTORY Hx Appendectomy: Yes - ANESTHESIA Hx Anesthesia: Yes Hx Anesthesia Reactions: No Meds Allergies/Adverse Reactions: Allergies Allergy/AdvReac Type Severity Reaction Status Date / Time No Known Allergies Allergy Verified 10/07/16 10:41 Physical Exam - Constitutional Appears: Non-toxic, No Acute Distress - Head Exam Head Exam: ATRAUMATIC, NORMAL INSPECTION, NORMOCEPHALIC - Eye Exam Eye Exam: EOMI, Normal appearance, PERRL Pupil Exam: NORMAL ACCOMODATION, PERRL - ENT Exam ENT Exam: Mucous Membranes Moist, Normal Exam, Normal External Ear Exam, Normal Oropharynx - Neck Exam Neck exam: Positive for: Normal Inspection Additional comments: NO Lymphadenopathy NO Thyromegaly - Respiratory Exam Respiratory Exam: Clear to Auscultation Bilateral, NORMAL BREATHING PATTERN Additional comments: NO R/R/W - Cardiovascular Exam Cardiovascular Exam: REGULAR RHYTHM, +S1, +S2 Additional comments: NO M/R/G - GI/Abdominal Exam Additional comments: Distended Soft Bilateral Upper Quadrant Sounds > Bilateral Lower Quadrant Sounds Tenderness to palpation Bilateral Upper Quadrant without rebound and without guarding Liver and Spleen could not be adequately palpated - Extremities Exam Extremities exam: Positive for: normal capillary refill, normal inspection Additional comments: NO edema Pulses are strong and equal Capillary Refill is 2 seconds - Neurological Exam Neurological exam: Alert, CN II-XII Intact, Oriented x3 - Psychiatric Exam Psychiatric exam: Normal Affect, Normal Mood Results - Vital Signs Recent Vital Signs: Last Vital Signs Temp 98.2 F 10/07/16 10:42 Pulse 92 H 10/07/16 10:42 Resp 20 10/07/16 10:42 BP 117/75 10/07/16 10:42 Pulse Ox 97 10/07/16 13:38 - Labs Result Diagrams: 10/07/16 11:20 10/07/16 11:20 Labs: Laboratory Results - last 24 hr 10/07/16 10/07/16 11:20 11:43 WBC 7.4 RBC 4.57 Hgb 13.5 Hct 39.9 MCV 87.4 MCH 29.4 MCHC 33.7 RDW 12.9 Plt Count 236 MPV 8.7 Neut % (Auto) 76.3 H Lymph % (Auto) 16.7 L [place] % (Auto) 6.1 Eos % (Auto) 0.4 Baso % (Auto) 0.5 Neut # 5.6 Lymph # 1.2 [place] # 0.4 Eos # 0.0 Baso # 0.0 Sodium 141 Potassium 3.9 Chloride 102 Carbon Dioxide 27 Anion Gap 17 BUN 9 Creatinine 0.7 Est GFR ( Amer) > 60 Est GFR (Non-Af Amer) > 60 Random Glucose 106 H Calcium 9.4 Total Bilirubin 1.2 AST 30 ALT 45 Alkaline Phosphatase 67 Total Protein 7.8 Albumin 3.9 Globulin 3.9 Albumin/Globulin Ratio 1.0 Lipase 80 Urine Color [place] Urine Clarity Slighty-cloudy Urine pH 7.0 Ur Specific [place] 1.025 Urine Protein 30 Urine Glucose (UA) Neg Urine Ketones Negative Urine Blood Negative Urine Nitrate Negative Urine Bilirubin Negative Urine Urobilinogen 4.0 H Ur Leukocyte Esterase Small Urine RBC (Auto) 4 H Urine Microscopic WBC 10 H Ur Squamous Epith Cells 8 H Assessment & Plan (1) SBO (small bowel obstruction) Assessment and Plan: Obstruction Series 10/07/16 showed distention of small bowel loops with decompressed colon concerning for small bowel obstruction Admit to the Med/Surgical Unit [address] Martha Sheth NPO NGT (patient requested smaller NGT unfortunately attempt with 14g not successful ). Clinical Dietitian to reattempt with 18 gauge NGT LR @ 125 ml/Hr Protonix 40 mg IV 1x/day Zofran 4 mg IV Q6H PRN N/V Toradol 15 mg IV Q6H PRN Moderate Pain Toradol 30 mg IV Q6H PRN Severe Pain Status: Acute (2) Prophylactic measure Assessment and Plan: Protonix as above Bilateral SCDs Status: Acute
[2016-10-07] MEDS: Lactated Ringer's 2,000 ML IV SCH ×2 (14:13→23:52)
--- NOTE | 2016-10-07 14:30 | RAD ---
HISTORY: S/P NGT Placement COMPARISON: Correlation made with obstructive series obtained approximately 1 hour earlier same day FINDINGS: LUNGS: Interval placement NGT, the tip of which is coiled upon itself lying within the upper esophagus region. No focal consolidation PLEURA: No significant pleural effusion identified, no pneumothorax apparent. CARDIOVASCULAR: Normal. OSSEOUS STRUCTURES: No significant abnormalities. VISUALIZED UPPER ABDOMEN: Please see obstructive series obtained approximately 1 hour earlier and corresponding report OTHER FINDINGS: None. IMPRESSION: Interval placement NGT, the tip of which is coiled upon itself lying within the upper esophagus region. No focal consolidation Case discussed with Dr. Magdaleno at approximately 2:20 p.m. with written down and read back verification
[2016-10-07] MEDS ORDERED: Chlorhexidine Gluconate 1 APPL/PKT TP ONE (14:53)
[2016-10-07] MEDS ORDERED: Lidocaine 2% Jelly (Uro-Jet) TOP ONE (15:07)
[2016-10-07] MEDS ORDERED: Phenol 1.4% Throat Spray MT PRN (15:08)
--- NOTE | 2016-10-07 15:22 | CP.PCM.CON ---
<NilesAdamaris - Last Filed: 10/07/16 16:33> History of Present Illness - History of Present Illness History of Present Illness: General Surgery - Dr Spence 26yo F recently admitted for SBO and treated conservatively, was discharged home yesterday and returns to ED today w/ worsening epigastric abdominal pain and nausea. Pt was tolerating diet and having BMs yesterday morning prior to DC. She states that later in the day she ate some potatoes and cheese for dinner which made her feel nauseous. Her pain gradually returned and she's felt progressively worse throughout the night into this morning. Pain is described as generalized "bloating-like" pain and worse in the epigastric region. Pt admits to nausea, no vomiting. She had a small BM this morning and is passing flatus. Pt denies any Fevers/Chills, SOB/CP, Dysuria, Hematuria. PMH: Skin rash (poss. psoriasis), SBO treated w/ NGT (2011) PSH: Ex lap for perforated appendix SH: Occasional EtOH, No tobacco or drug use All: NKDA Labs drawn in the ED are unremarkable. An Obstructive series was done which shows dilated loops of small bowel with air fluid levels consistent with SBO. NGT was placed bedside with ~300cc initial drainage of gastric contents. Review of Systems - Review of Systems All systems: reviewed and no additional remarkable complaints except (as per HPI ) Past Patient History - Past Medical History & Family History Past Medical History?: Yes - Past Social History Smoking Status: Never Smoked - CARDIAC Hx Cardiac Disorders: No - PULMONARY Hx Respiratory Disorders: No - NEUROLOGICAL Hx Neurological Disorder: No - HEENT Hx HEENT Problems: No - RENAL Hx Chronic Kidney Disease: No - ENDOCRINE/METABOLIC Hx Endocrine Disorders: No - HEMATOLOGICAL/ONCOLOGICAL Hx Human Immunodeficiency Virus (HIV): No - INTEGUMENTARY Hx Dermatological Problems: No Other/Comment: red, dry rash left middle knuckle, right pinky and around mouth - MUSCULOSKELETAL/RHEUMATOLOGICAL Hx Musculoskeletal Disorders: No Hx Falls: Yes - GASTROINTESTINAL Hx Gastrointestinal Disorders: No - GENITOURINARY/GYNECOLOGICAL Hx Genitourinary Disorders: No - PSYCHIATRIC Hx Psychophysiologic Disorder: No Hx Substance Use: No - SURGICAL HISTORY Hx Appendectomy: Yes - ANESTHESIA Hx Anesthesia: Yes Hx Anesthesia Reactions: No Meds Allergies/Adverse Reactions: Allergies Allergy/AdvReac Type Severity Reaction Status Date / Time No Known Allergies Allergy Verified 10/07/16 10:41 - Medications Medications: Current Medications Lactated Ringer's (Lactated Ringer's) 2,000 mls @ 125 mls/hr IV .Q16H [facility] Last Admin: 10/07/16 14:13 Dose: 125 mls/hr Ketorolac Tromethamine (Toradol) 15 mg IVP Q6 PRN PRN Reason: Pain, moderate (4-7) Ketorolac Tromethamine (Toradol) 30 mg IVP Q6 PRN PRN Reason: Pain, severe (8-10) Ondansetron HCl (Zofran Inj) 4 mg IVP Q6 PRN PRN Reason: Nausea/Vomiting Pantoprazole Sodium (Protonix Inj) 40 mg IVP DAILY [facility] Last Admin: 10/07/16 14:15 Dose: 40 mg Phenol/Menthol (Phenaseptic 1.4% Throat [place]) 1 spry MT Q2 PRN PRN Reason: Sore Throat Physical Exam - Constitutional Appears: No Acute Distress - Head Exam Head Exam: ATRAUMATIC, NORMAL INSPECTION, NORMOCEPHALIC - Eye Exam Eye Exam: Normal appearance - Respiratory Exam Respiratory Exam: NORMAL BREATHING PATTERN. absent: Respiratory Distress - GI/Abdominal Exam GI & Abdominal Exam: Distended, Soft, Tenderness (epigastric). absent: Firm, Guarding, Hernia, Rebound, Rigid - Neurological Exam Neurological exam: Alert, Oriented x3 - Psychiatric Exam Psychiatric exam: Normal Affect, Normal Mood - Skin Skin Exam: Dry, Intact Results - Vital Signs Recent Vital Signs: Last Vital Signs Temp 98.3 F 10/07/16 14:39 Pulse 84 10/07/16 14:39 Resp 16 10/07/16 14:39 BP 114/70 10/07/16 14:39 Pulse Ox 99 10/07/16 14:33 - Labs Result Diagrams: 10/07/16 11:20 10/07/16 11:20 - Imaging and Cardiology Abdominal x-ray Status: Image reviewed by me, Report reviewed by me Assessment & Plan - Assessment and Plan (Free Text) Assessment: 26 yo F w/ SBO -NPO -NGT Decompression - Continuous suction -IVF -Pain control, Zofran prn -Will monitor for improvement DW Dr Bebe Cage PGY2 <Rio Spence - Last Filed: 10/09/16 10:53> Meds - Medications Medications: Current Medications Lactated Ringer's (Lactated Ringer's) 2,000 mls @ 125 mls/hr IV .Q16H [facility] Last Admin: 10/09/16 01:53 Dose: 125 mls/hr Ketorolac Tromethamine (Toradol) 15 mg IVP Q6 PRN PRN Reason: Pain, moderate (4-7) Last Admin: 10/08/16 06:17 Dose: 15 mg Ketorolac Tromethamine (Toradol) 30 mg IVP Q6 PRN PRN Reason: Pain, severe (8-10) Last Admin: 10/08/16 14:59 Dose: 30 mg Ondansetron HCl (Zofran Inj) 4 mg IVP Q6 PRN PRN Reason: Nausea/Vomiting Pantoprazole Sodium (Protonix Inj) 40 mg IVP DAILY [facility] Last Admin: 10/09/16 08:57 Dose: 40 mg Phenol/Menthol (Phenaseptic 1.4% Throat [place]) 1 spry MT Q2 PRN PRN Reason: Sore Throat Results - Vital Signs Recent Vital Signs: Last Vital Signs Temp 98.2 F 10/09/16 07:58 Pulse 67 10/09/16 07:58 Resp 20 10/09/16 07:58 BP 129/84 10/09/16 07:58 Pulse Ox 100 10/09/16 07:58 - Labs Result Diagrams: 10/09/16 06:20 10/09/16 06:20 Labs: Laboratory Results - last 24 hr 10/09/16 06:20 WBC 7.4 RBC 4.20 Hgb 12.5 Hct 36.3 MCV 86.6 MCH 29.9 MCHC 34.5 RDW 12.7 Plt Count 213 MPV 8.9 Neut % (Auto) 68.1 Lymph % (Auto) 24.4 [place] % (Auto) 6.4 Eos % (Auto) 0.9 Baso % (Auto) 0.2 Neut # 5.0 Lymph # 1.8 [place] # 0.5 Eos # 0.1 Baso # 0.0 Sodium 142 Potassium 3.9 Chloride 101 Carbon Dioxide 24 Anion Gap 20 BUN 8 Creatinine 0.7 Est GFR ( Amer) > 60 Est GFR (Non-Af Amer) > 60 Random Glucose 73 Calcium 8.8 Attending/Attestation - Attestation I have personally seen and examined this patient.: Yes I have fully participated in the care of the patient.: Yes I have reviewed all pertinent clinical information: Yes Notes (Text): 10/09/16 10:52 Pt was seen and examined at bedside on 10/07/16 Agree with above note and assessment Pt with recurrent PSBO NG to LIS NPO AXR in am Plan d.w pt in detail Risk and benefit explained in detail.
[2016-10-08] MEDS: Lactated Ringer's 2,000 ML IV SCH ×3 (05:45→22:18)
[2016-10-08 07:36] LABS: BASO % 0.3 % (0.0-2.0); EOS # 0.1 K/uL (0.0-0.7); EOS % 0.6 % (0.0-4.0); HEMATOCRIT 36.3 % (34.0-47.0); LYMPH # 1.7 K/uL (1.0-4.3); LYMPH % 18.5 % (20.0-40.0); MEAN CELL VOLUME 88.5 fl (81.0-99.0); MEAN CORPUSCULAR HEMOGLOBIN 29.9 pg (27.0-31.0); MEAN CORPUSCULAR HGB CONC 33.8 g/dL (33.0-37.0); MEAN PLATELET VOLUME 9.4 fl (7.2-11.7); MONO # 0.6 K/uL (0.0-0.8); MONO % 6.7 % (0.0-10.0); NEUT % 73.9 % (50.0-75.0); RED CELL DISTRIBUTION WIDTH 12.7 % (11.5-14.5); WHITE BLOOD COUNT 9.5 K/uL (4.8-10.8)
[2016-10-08 07:43] LABS: ALKALINE PHOSPHATASE 61 U/L (38-126); ALT/SGPT 46 U/L (9-52); AST/SGOT 31 U/L (14-36); BLOOD UREA NITROGEN 9 mg/dl (7-17); CALCIUM 8.8 mg/dL (8.4-10.2); CARBON DIOXIDE 26 mmol/L (22-30); CHLORIDE 104 mmol/L (98-107); GFR AFRICAN-AMERICAN > 60; GLUCOSE,RANDOM 82 mg/dL (65-105); POTASSIUM 4.1 MMOL/L (3.6-5.0); SODIUM 143 mmol/l (132-148); TOTAL PROTEIN 6.5 G/DL (6.3-8.2)
--- NOTE | 2016-10-08 08:38 | CP.PCM.PN ---
Subjective - Date & Time of Evaluation Date of Evaluation: 10/08/16 Time of Evaluation: 08:36 - Subjective Subjective: General Surgery - Dr. Spence Pt S&E. NIKITA. Pt had total of 700cc drainage from NGT since placed yesterday afternoon, yellow liquid in canister. Pt states her pain is improved today. She still feels some bloating discomfort. She is passing flatus, no BM yet. No N/V, F/C, SOB/Cp. Objective - Vital Signs/Intake and Output Vital Signs (last 24 hours): Temp Pulse Resp BP Pulse Ox 98.6 F 67 20 107/67 98 10/08/16 08:10 10/08/16 08:10 10/08/16 08:10 10/08/16 08:10 10/08/16 08:10 - Medications Medications: Current Medications Lactated Ringer's (Lactated Ringer's) 2,000 mls @ 125 mls/hr IV .Q16H [facility] Last Admin: 10/08/16 05:45 Dose: Not Given Ketorolac Tromethamine (Toradol) 15 mg IVP Q6 PRN PRN Reason: Pain, moderate (4-7) Last Admin: 10/08/16 06:17 Dose: 15 mg Ketorolac Tromethamine (Toradol) 30 mg IVP Q6 PRN PRN Reason: Pain, severe (8-10) Ondansetron HCl (Zofran Inj) 4 mg IVP Q6 PRN PRN Reason: Nausea/Vomiting Pantoprazole Sodium (Protonix Inj) 40 mg IVP DAILY [facility] Last Admin: 10/07/16 14:15 Dose: 40 mg Phenol/Menthol (Phenaseptic 1.4% Throat [place]) 1 spry MT Q2 PRN PRN Reason: Sore Throat - Labs Labs: 10/08/16 05:30 10/08/16 05:30 - Constitutional Appears: No Acute Distress - Head Exam Head Exam: ATRAUMATIC, NORMAL INSPECTION, NORMOCEPHALIC - Eye Exam Eye Exam: Normal appearance - Respiratory Exam Respiratory Exam: NORMAL BREATHING PATTERN. absent: Respiratory Distress - GI/Abdominal Exam GI & Abdominal Exam: Distended, Soft. absent: Firm, Guarding, Rigid, Tenderness , Rebound - Neurological Exam Neurological Exam: Alert, Oriented x3 - Psychiatric Exam Psychiatric exam: Normal Affect, Normal Mood - Skin Skin Exam: Dry, Intact Assessment and Plan - Assessment and Plan (Free Text) Assessment: 26 yo F w/ SBO -Continue NGT Decompression - Continuos Suction -Maintain NPO, may have ice chips -Encourage Ambulation - may clamp NGT for periods to ambulate -Monitor for further bowel function DW Dr Bebe Cage PGY2
--- NOTE | 2016-10-08 09:38 | CP.PCM.PN ---
Subjective - Date & Time of Evaluation Date of Evaluation: 10/08/16 Time of Evaluation: 09:20 - Subjective Subjective: Hospitalist Progress Note (Patient was seen and examined at 9:20 AM 10/08/16 657- 2) 26 year old female (PMHx Perforated Appendectomy 01/2011 and SBO 11/2011) who was admitted on 10/07/16 afternoon for nausea and abdominal pain secondary to Small Bowel Obstruction. She was also admitted on 10/04/16 for complaint of 3 days of intermittent cramping bilateral upper quadrant area. Obstruction Series upon that admission and repeat on 10/05/16 showed small bowel obstruction, no free air , disproportional dilatation of proximal mid-small bowel loops compared to decompressed colon. She had Leukocytosis at 12.0 on 10/04/16 and this resolved on 10/05/16 at 6.8. She was treated with Toradol and Morphine as needed for pain. She was evaluated by Surgery Dr. Spence. She was started on Clear Liquids on 10/05/16 and regular diet on 10/06/16 and she tolerated these without incident (NO n/v). She had 2 soft nonbloody/nonblack bowel movements on 10/06/16 and she was passing flatus. She had some mild cramping periumbilical pain ("not like in the ER") when she walked that comes and goes. She was cleared by Surgery for discharge on 10/06/16. She was instructed to follow up with Dr. Spence in 10 days and to return to the ER if the pain in the abdomen returns to its original intensity, if she experiences any nausea with vomiting, or has not moved her bowels. After she got home, she was doing fine. Around 8 PM 10/06/16 she tried to eat a potato dish with some small amount of cheese but she felt full after just a few bites. Thirty minutes after this, she started to experience generalized abdominal pain with the greatest intensity in the epigastric area along with nausea and sensation like something was stuck in her throat. She tried to brush her teeth but this intensified the nausea. She had trouble sleeping through the night of 10/07/16 because of the nausea. Then on morning 10/07/16, as the nausea, the generalized abdominal pain, the sensation of something stuck in her throat was not better she asked her to drive her back to the [facility] ER. Patient was made NPO, NGT was placed, and patient was admitted to the Medical/Surgical Unit. Currently upon FULL ROS: Abdominal Pain as described above has improved Does not feel Nausea and did not request Zofran Some soreness in the throat secondary to the NGT NO bowel movement yet since small one on the night of 10/06/16 Patient states that she continues to pass flatus NO chest pain, NO palpitations, NO SOB/Cough/Wheezing, NO burning/pain with urination, NO lightheadedness/dizziness, NO new changes in vision/eye pain, NO new changes in hearing/ear pain, NO paresthesias, NO edema Physical Exam - Constitutional Appears: Non-toxic, No Acute Distress - Head Exam Head Exam: ATRAUMATIC, NORMAL INSPECTION, NORMOCEPHALIC - Eye Exam Eye Exam: EOMI, Normal appearance, PERRL Pupil Exam: NORMAL ACCOMODATION, PERRL - ENT Exam ENT Exam: Mucous Membranes Moist, Normal Exam, Normal External Ear Exam, Normal Oropharynx - Neck Exam Neck exam: Positive for: Normal Inspection Additional comments: NO Lymphadenopathy NO Thyromegaly - Respiratory Exam Respiratory Exam: Clear to Auscultation Bilateral, NORMAL BREATHING PATTERN Additional comments: NO R/R/W - Cardiovascular Exam Cardiovascular Exam: REGULAR RHYTHM, +S1, +S2 Additional comments: NO M/R/G - GI/Abdominal Exam Additional comments: Distension has improved Soft Bilateral Upper Quadrant Sounds are now equal to Bilateral Lower Quadrant Sounds (which were diminished on 10/07/16) Mild Tenderness to palpation Bilateral Upper Quadrant without rebound and without guarding Liver and Spleen could not be adequately palpated - Extremities Exam Extremities exam: Positive for: normal capillary refill, normal inspection Additional comments: NO edema Pulses are strong and equal Capillary Refill is 2 seconds - Neurological Exam Neurological exam: Alert, CN II-XII Intact, Oriented x3 - Psychiatric Exam Psychiatric exam: Normal Affect, Normal Mood Assessment & Plan (1) SBO (small bowel obstruction) Assessment and Plan: Obstruction Series 10/07/16 showed distention of small bowel loops with decompressed colon concerning for small bowel obstruction Surgeon Dr. Martha Sheth Continue NPO Continue NGT with continuous suction: 700 ml last night and then 200 ml this morning LR @ 125 ml/Hr Protonix 40 mg IV 1x/day Zofran 4 mg IV Q6H PRN N/V Toradol 15 mg IV Q6H PRN Moderate Pain Toradol 30 mg IV Q6H PRN Severe Pain (2) Prophylactic measure Assessment and Plan: Protonix as above Bilateral SCDs Objective - Vital Signs/Intake and Output Vital Signs (last 24 hours): Temp Pulse Resp BP Pulse Ox 98.6 F 67 20 107/67 98 10/08/16 08:10 10/08/16 08:10 10/08/16 08:10 10/08/16 08:10 10/08/16 08:10 - Medications Medications: Current Medications Lactated Ringer's (Lactated Ringer's) 2,000 mls @ 125 mls/hr IV .Q16H [facility] Last Admin: 10/08/16 08:46 Dose: 125 mls/hr Ketorolac Tromethamine (Toradol) 15 mg IVP Q6 PRN PRN Reason: Pain, moderate (4-7) Last Admin: 10/08/16 06:17 Dose: 15 mg Ketorolac Tromethamine (Toradol) 30 mg IVP Q6 PRN PRN Reason: Pain, severe (8-10) Ondansetron HCl (Zofran Inj) 4 mg IVP Q6 PRN PRN Reason: Nausea/Vomiting Pantoprazole Sodium (Protonix Inj) 40 mg IVP DAILY [facility] Last Admin: 10/08/16 08:40 Dose: 40 mg Phenol/Menthol (Phenaseptic 1.4% Throat [place]) 1 spry MT Q2 PRN PRN Reason: Sore Throat - Labs Labs: 10/08/16 05:30 10/08/16 05:30 Assessment and Plan (1) SBO (small bowel obstruction) Status: Acute (2) Prophylactic measure Status: Acute
[2016-10-09] MEDS: Lactated Ringer's 2,000 ML IV SCH (01:53)
[2016-10-09 08:39] LABS: BASO % 0.2 % (0.0-2.0); EOS # 0.1 K/uL (0.0-0.7); EOS % 0.9 % (0.0-4.0); HEMATOCRIT 36.3 % (34.0-47.0); LYMPH # 1.8 K/uL (1.0-4.3); LYMPH % 24.4 % (20.0-40.0); MEAN CELL VOLUME 86.6 fl (81.0-99.0); MEAN CORPUSCULAR HEMOGLOBIN 29.9 pg (27.0-31.0); MEAN CORPUSCULAR HGB CONC 34.5 g/dL (33.0-37.0); MEAN PLATELET VOLUME 8.9 fl (7.2-11.7); MONO # 0.5 K/uL (0.0-0.8); MONO % 6.4 % (0.0-10.0); NEUT % 68.1 % (50.0-75.0); RED CELL DISTRIBUTION WIDTH 12.7 % (11.5-14.5); WHITE BLOOD COUNT 7.4 K/uL (4.8-10.8)
[2016-10-09 09:02] LABS: BLOOD UREA NITROGEN 8 mg/dl (7-17); CALCIUM 8.8 mg/dL (8.4-10.2); CARBON DIOXIDE 24 mmol/L (22-30); CHLORIDE 101 mmol/L (98-107); GFR AFRICAN-AMERICAN > 60; GLUCOSE,RANDOM 73 mg/dL (65-105); POTASSIUM 3.9 MMOL/L (3.6-5.0); SODIUM 142 mmol/l (132-148)
--- NOTE | 2016-10-09 10:54 | CP.PCM.PN ---
Subjective - Date & Time of Evaluation Date of Evaluation: 10/09/16 Time of Evaluation: 10:30 - Subjective Subjective: No fever remain on NGT connected to suction- 200 ml this am abdomen no longer distended abd pain resolved no N/V some flatus passage this am, no BM no CP no SOB Objective - Vital Signs/Intake and Output Vital Signs (last 24 hours): Temp Pulse Resp BP Pulse Ox 98.2 F 67 20 129/84 100 10/09/16 07:58 10/09/16 07:58 10/09/16 07:58 10/09/16 07:58 10/09/16 07:58 - Medications Medications: Current Medications Lactated Ringer's (Lactated Ringer's) 2,000 mls @ 125 mls/hr IV .Q16H [facility] Last Admin: 10/09/16 01:53 Dose: 125 mls/hr Ketorolac Tromethamine (Toradol) 15 mg IVP Q6 PRN PRN Reason: Pain, moderate (4-7) Last Admin: 10/08/16 06:17 Dose: 15 mg Ketorolac Tromethamine (Toradol) 30 mg IVP Q6 PRN PRN Reason: Pain, severe (8-10) Last Admin: 10/08/16 14:59 Dose: 30 mg Ondansetron HCl (Zofran Inj) 4 mg IVP Q6 PRN PRN Reason: Nausea/Vomiting Pantoprazole Sodium (Protonix Inj) 40 mg IVP DAILY [facility] Last Admin: 10/09/16 08:57 Dose: 40 mg Phenol/Menthol (Phenaseptic 1.4% Throat [place]) 1 spry MT Q2 PRN PRN Reason: Sore Throat - Labs Labs: 10/09/16 06:20 10/09/16 06:20 - Constitutional Appears: Non-toxic, No Acute Distress - Head Exam Head Exam: NORMAL INSPECTION, NORMOCEPHALIC - Eye Exam Eye Exam: EOMI, Normal appearance, PERRL Pupil Exam: NORMAL ACCOMODATION - ENT Exam ENT Exam: Mucous Membranes Dry, Normal External Ear Exam - Neck Exam Neck Exam: Full ROM. absent: Meningismus - Respiratory Exam Respiratory Exam: NORMAL BREATHING PATTERN. absent: Respiratory Distress - Cardiovascular Exam Cardiovascular Exam: REGULAR RHYTHM, +S1, +S2 - GI/Abdominal Exam GI & Abdominal Exam: Soft, Tenderness (very minimal tenderness to palpation , generalized), Normal Bowel Sounds - Extremities Exam Extremities Exam: Full ROM, Normal Capillary Refill, Normal Inspection. absent : Calf Tenderness, Pedal Edema - Back Exam Back Exam: Full ROM, NORMAL INSPECTION. absent: CVA tenderness (L), CVA tenderness (R) - Neurological Exam Neurological Exam: Alert, Awake, CN II-XII Intact, Normal Gait, Oriented x3 Neuro motor strength exam: Left Upper Extremity: 5, Right Upper Extremity: 5, Left Lower Extremity: 5, Right Lower Extremity: 5 - Psychiatric Exam Psychiatric exam: Normal Affect, Normal Mood - Skin Skin Exam: Dry, Normal Color, Warm Assessment and Plan - Assessment and Plan (Free Text) Assessment: 26 year old female (PMHx Perforated Appendectomy 01/2011 and SBO 11/2011) who was admitted on 10/07/16 afternoon for nausea and abdominal pain secondary to Small Bowel Obstruction. She was also admitted on 10/04/16 for complaint of 3 days of intermittent cramping bilateral upper quadrant area. Obstruction Series upon that admission and repeat on 10/05/16 showed small bowel obstruction, no free air , disproportional dilatation of proximal mid-small bowel loops compared to decompressed colon. She had Leukocytosis at 12.0 on 10/04/16 and this resolved on 10/05/16 at 6.8. She was treated with Toradol and Morphine as needed for pain. She was evaluated by Surgery Dr. Spence. She was started on Clear Liquids on 10/05/16 and regular diet on 10/06/16 and she tolerated these without incident (NO n/v). She had 2 soft nonbloody/nonblack bowel movements on 10/06/16 and she was passing flatus , tolerated diet and was d/c home. She returns on 10/07 with recurrence of her abd pain, distention, vomiting . (1) SBO (small bowel obstruction) Obstruction Series 10/07/16 showed distention of small bowel loops with decompressed colon concerning for small bowel obstruction Surgeon Dr. Martha Spence Continue NPO Continue NGT with continuous suction: 700 ml last night and then 200 ml this morning LR @ 125 ml/Hr Protonix 40 mg IV 1x/day Zofran 4 mg IV Q6H PRN N/V Toradol 15 mg IV Q6H PRN Moderate Pain Toradol 30 mg IV Q6H PRN Severe Pain (2) Prophylactic measure Assessment and Plan: Protonix as above Bilateral SCDs ambulate (3) UTI Urine c/s: Klebsiella - start IV Ceftriaxone x 3 days - no fever, normal WBC
[2016-10-09] MEDS ORDERED: Lactated Ringer's 2,000 ML IV SCH (12:14)
--- NOTE | 2016-10-09 13:35 | CP.PCM.PN ---
Subjective - Date & Time of Evaluation Date of Evaluation: 10/09/16 Time of Evaluation: 07:15 - Subjective Subjective: General Surgery Dr. Spence Pt S&E @bedside. NAEO. no complaints. denies F/C, N/V, abd pain. (+) Flatus (-) BM. discussed importance of ambulating. tolerating ice chips. NGT 200cc output x24hrs Objective - Vital Signs/Intake and Output Vital Signs (last 24 hours): Temp Pulse Resp BP Pulse Ox 98.2 F 67 20 129/84 100 10/09/16 07:58 10/09/16 07:58 10/09/16 07:58 10/09/16 07:58 10/09/16 07:58 - Medications Medications: Current Medications Ceftriaxone Sodium 1 gm/ (Sodium Chloride) 100 mls @ 100 mls/hr IVPB DAILY [facility] Ketorolac Tromethamine (Toradol) 15 mg IVP Q6 PRN PRN Reason: Pain, moderate (4-7) Last Admin: 10/08/16 06:17 Dose: 15 mg Ketorolac Tromethamine (Toradol) 30 mg IVP Q6 PRN PRN Reason: Pain, severe (8-10) Last Admin: 10/08/16 14:59 Dose: 30 mg Ondansetron HCl (Zofran Inj) 4 mg IVP Q6 PRN PRN Reason: Nausea/Vomiting Pantoprazole Sodium (Protonix Inj) 40 mg IVP DAILY [facility] Last Admin: 10/09/16 08:57 Dose: 40 mg Phenol/Menthol (Phenaseptic 1.4% Throat [place]) 1 spry MT Q2 PRN PRN Reason: Sore Throat - Labs Labs: 10/09/16 06:20 10/09/16 06:20 - Constitutional Appears: Non-toxic, No Acute Distress - Head Exam Head Exam: NORMAL INSPECTION - Eye Exam Eye Exam: Normal appearance - ENT Exam ENT Exam: Mucous Membranes Moist Additional comments: NGT in place. green output - Respiratory Exam Respiratory Exam: NORMAL BREATHING PATTERN. absent: Accessory Muscle Use, Respiratory Distress - GI/Abdominal Exam GI & Abdominal Exam: Soft. absent: Distended, Guarding, Tenderness, Rebound Additional comments: scar present from previous abd surgery - Extremities Exam Extremities Exam: Normal Inspection. absent: Pedal Edema, Tenderness - Neurological Exam Neurological Exam: Alert, Awake, Oriented x3 - Psychiatric Exam Psychiatric exam: Normal Affect, Normal Mood - Skin Skin Exam: Dry, Intact, Normal Color, Warm Assessment and Plan - Assessment and Plan (Free Text) Assessment: 26 y/o F w/ SBO - Cont NGT low continuos sxn - NPO w/ sips and chips - Encourage OOB to chair/Amb - may clamp NGT for periods to ambulate - Monitor bowel fxn Pt discussed w/ Dr. Bebe Pacheco DO PGY1
--- NOTE | 2016-10-10 08:21 | CP.PCM.PN ---
<BurgessAaron - Last Filed: 10/10/16 08:18> Subjective - Date & Time of Evaluation Date of Evaluation: 10/10/16 Time of Evaluation: 07:25 - Subjective Subjective: General Surgery Pt S&E, NAEO. ~600cc brown/yellow output. Denies abd pain, N/V. Passing flatus. Tolerated clamp trials well yesterday. Objective - Vital Signs/Intake and Output Vital Signs (last 24 hours): Temp Pulse Resp BP Pulse Ox 98.2 F 70 18 120/77 100 10/10/16 07:29 10/10/16 07:29 10/10/16 07:29 10/10/16 07:29 10/10/16 07:29 Intake and Output: 10/10/16 10/10/16 06:59 18:59 Intake Total 1000 Output Total 400 Balance 600 - Medications Medications: Current Medications Ceftriaxone Sodium 1 gm/ (Sodium Chloride) 100 mls @ 100 mls/hr IVPB DAILY [facility] Ketorolac Tromethamine (Toradol) 15 mg IVP Q6 PRN PRN Reason: Pain, moderate (4-7) Last Admin: 10/08/16 06:17 Dose: 15 mg Ketorolac Tromethamine (Toradol) 30 mg IVP Q6 PRN PRN Reason: Pain, severe (8-10) Last Admin: 10/08/16 14:59 Dose: 30 mg Ondansetron HCl (Zofran Inj) 4 mg IVP Q6 PRN PRN Reason: Nausea/Vomiting Pantoprazole Sodium (Protonix Inj) 40 mg IVP DAILY [facility] Last Admin: 10/09/16 08:57 Dose: 40 mg Phenol/Menthol (Phenaseptic 1.4% Throat [place]) 1 spry MT Q2 PRN PRN Reason: Sore Throat - Labs Labs: 10/09/16 06:20 10/09/16 06:20 - Constitutional Appears: Non-toxic, No Acute Distress - Head Exam Head Exam: ATRAUMATIC, NORMOCEPHALIC - Eye Exam Eye Exam: EOMI. absent: Scleral icterus - Respiratory Exam Respiratory Exam: NORMAL BREATHING PATTERN. absent: Respiratory Distress - GI/Abdominal Exam GI & Abdominal Exam: Soft. absent: Distended, Firm, Guarding, Rigid, Tenderness - Neurological Exam Neurological Exam: Alert, Awake, Oriented x3 - Skin Skin Exam: Dry, Warm Assessment and Plan - Assessment and Plan (Free Text) Assessment: 26F with SBO Plan: - Cont NGT low continuos sxn - NPO w/ sips and chips - Monitor bowel fxn - Obstructive series today D/W Dr. Bebe Morgan PGY3 <Rio Spence - Last Filed: 10/12/16 20:07> Objective - Vital Signs/Intake and Output Vital Signs (last 24 hours): Temp Pulse Resp BP Pulse Ox 97.8 F 79 18 114/71 97 10/12/16 08:04 10/12/16 08:04 10/12/16 08:04 10/12/16 08:04 10/12/16 08:04 - Labs Labs: 10/11/16 06:25 10/11/16 06:25 Attending/Attestation - Attestation I have personally seen and examined this patient.: Yes I have fully participated in the care of the patient.: Yes I have reviewed all pertinent clinical information, including history, physical exam and plan: Yes Notes (Text): 10/12/16 20:01 Pt was seen and examined at bedside on 10/10/16 Agree with above note and assessment. Pt with PSBO due to post op adhesions C/w NG tube AXR NPO Plan d.w pt in detail.
--- NOTE | 2016-10-10 10:19 | CP.PCM.PN ---
Subjective - Date & Time of Evaluation Date of Evaluation: 10/10/16 Time of Evaluation: 15:30 - Subjective Subjective: Patient seen and examined bedside. Feeling better.Passing flatus. Denies any abdominal pain. Hemodynamically stable, afebrile.No acute issues issues overnight. NGT in place . Objective - Vital Signs/Intake and Output Vital Signs (last 24 hours): Temp Pulse Resp BP Pulse Ox 98.2 F 70 18 120/77 100 10/10/16 07:29 10/10/16 07:29 10/10/16 07:29 10/10/16 07:29 10/10/16 07:29 Intake and Output: 10/10/16 10/10/16 06:59 18:59 Intake Total 1000 Output Total 400 Balance 600 - Medications Medications: Current Medications Ceftriaxone Sodium 1 gm/ (Sodium Chloride) 100 mls @ 100 mls/hr IVPB DAILY [facility] Last Admin: 10/10/16 09:50 Dose: 100 mls/hr Ketorolac Tromethamine (Toradol) 15 mg IVP Q6 PRN PRN Reason: Pain, moderate (4-7) Last Admin: 10/08/16 06:17 Dose: 15 mg Ketorolac Tromethamine (Toradol) 30 mg IVP Q6 PRN PRN Reason: Pain, severe (8-10) Last Admin: 10/08/16 14:59 Dose: 30 mg Ondansetron HCl (Zofran Inj) 4 mg IVP Q6 PRN PRN Reason: Nausea/Vomiting Pantoprazole Sodium (Protonix Inj) 40 mg IVP DAILY [facility] Last Admin: 10/10/16 09:51 Dose: 40 mg Phenol/Menthol (Phenaseptic 1.4% Throat [place]) 1 spry MT Q2 PRN PRN Reason: Sore Throat - Labs Labs: 10/09/16 06:20 10/09/16 06:20 - Constitutional Appears: Well, Non-toxic, No Acute Distress - Head Exam Head Exam: ATRAUMATIC, NORMAL INSPECTION, NORMOCEPHALIC - Eye Exam Eye Exam: EOMI, Normal appearance, PERRL Pupil Exam: NORMAL ACCOMODATION - ENT Exam ENT Exam: Mucous Membranes Moist, Normal Exam - Neck Exam Neck Exam: Full ROM, Normal Inspection - Respiratory Exam Respiratory Exam: Clear to Ausculation Bilateral, NORMAL BREATHING PATTERN. absent: Rales, Rhonchi, Wheezes - Cardiovascular Exam Cardiovascular Exam: REGULAR RHYTHM, RRR, +S1, +S2. absent: JVD - GI/Abdominal Exam GI & Abdominal Exam: Soft, Normal Bowel Sounds. absent: Distended, Rigid, Tenderness, Rebound - Rectal Exam Rectal Exam: Deferred - Extremities Exam Extremities Exam: Full ROM, Normal Capillary Refill, Normal Inspection - Back Exam Back Exam: NORMAL INSPECTION - Neurological Exam Neurological Exam: Alert, Awake, CN II-XII Intact, Oriented x3 - Psychiatric Exam Psychiatric exam: Normal Affect, Normal Mood - Skin Skin Exam: Dry, Intact, Normal Color Assessment and Plan - Assessment and Plan (Free Text) Assessment: 26 year old female with PMHx Perforated Appendectomy 01/2011 and recurrent SBO was admitted on 10/07/16 with nausea and abdominal pain secondary to Small Bowel Obstruction. Surgery is consulted . At present NGT in place , passing flatus , denies abdominal pain. (1) SBO (small bowel obstruction) improving ., passing flatus Obstruction Series today showed improving SBO Surgery on consult , following closely Will clamp NGT today and monitor closely Continue NPO , ice chips and IVF Pain management PRN (2) Prophylactic measure Protonix Bilateral SCDs ambulate (3) UTI Urine c/s: Klebsiella Continue IV Ceftriaxone x 3 days
--- NOTE | 2016-10-10 12:15 | RAD ---
PROCEDURE: Radiographs of the chest and abdomen (obstructive series) HISTORY: re-evaluate SBO COMPARISON: 10/07/2016 and 10/04/[address] of the abdomen and pelvis respectively. TECHNIQUE: AP radiograph of the chest, with upright and supine radiographs of the abdomen. FINDINGS: CHEST: Lungs: Clear. Cardiovascular: Normal size heart. No pulmonary vascular congestion. Pleura: No pleural fluid. No pneumothorax. Other findings: None. ABDOMEN AND PELVIS: Bowel: Improving small bowel obstruction. Isaac for constipation Free air: 96 gastric tube Bones: Unremarkable. Other findings: Courses through the esophagus into a decompressed stomach. Interval improvement in small bowel obstruction compared to prior studies. IMPRESSION: Improving small bowel obstruction.
[2016-10-11 07:18] LABS: HEMATOCRIT 37.8 % (34.0-47.0); MEAN CELL VOLUME 86.3 fl (81.0-99.0); MEAN CORPUSCULAR HEMOGLOBIN 29.9 pg (27.0-31.0); MEAN CORPUSCULAR HGB CONC 34.7 g/dL (33.0-37.0); RED CELL DISTRIBUTION WIDTH 12.5 % (11.5-14.5); WHITE BLOOD COUNT 7.2 K/uL (4.8-10.8)
[2016-10-11 07:31] LABS: BLOOD UREA NITROGEN 8 mg/dl (7-17); CALCIUM 9.3 mg/dL (8.4-10.2); CARBON DIOXIDE 22 mmol/L (22-30); CHLORIDE 101 mmol/L (98-107); GFR AFRICAN-AMERICAN > 60; GLUCOSE,RANDOM 74 mg/dL (65-105); SODIUM 141 mmol/l (132-148)
--- NOTE | 2016-10-11 07:40 | CP.PCM.PN ---
<Aaron Morgan - Last Filed: 10/11/16 07:38> Subjective - Date & Time of Evaluation Date of Evaluation: 10/11/16 Time of Evaluation: 06:45 - Subjective Subjective: General Surgery Pt S&E, NAEO. ~200cc bilious output. Denies abd pain, N/V. Passing flatus. Tolerated clamp trials well yesterday. Objective - Vital Signs/Intake and Output Vital Signs (last 24 hours): Temp Pulse Resp BP Pulse Ox 98.7 F 69 18 123/77 98 10/10/16 20:53 10/10/16 20:53 10/10/16 20:53 10/10/16 20:53 10/10/16 20:53 Intake and Output: 10/11/16 10/11/16 06:59 18:59 Output Total 150 Balance -150 - Medications Medications: Current Medications Ceftriaxone Sodium 1 gm/ (Sodium Chloride) 100 mls @ 100 mls/hr IVPB DAILY [facility] Last Admin: 10/10/16 09:50 Dose: 100 mls/hr Ketorolac Tromethamine (Toradol) 15 mg IVP Q6 PRN PRN Reason: Pain, moderate (4-7) Last Admin: 10/08/16 06:17 Dose: 15 mg Ketorolac Tromethamine (Toradol) 30 mg IVP Q6 PRN PRN Reason: Pain, severe (8-10) Last Admin: 10/08/16 14:59 Dose: 30 mg Ondansetron HCl (Zofran Inj) 4 mg IVP Q6 PRN PRN Reason: Nausea/Vomiting Pantoprazole Sodium (Protonix Inj) 40 mg IVP DAILY [facility] Last Admin: 10/10/16 09:51 Dose: 40 mg Phenol/Menthol (Phenaseptic 1.4% Throat [place]) 1 spry MT Q2 PRN PRN Reason: Sore Throat - Labs Labs: 10/09/16 06:20 10/11/16 06:25 - Constitutional Appears: Non-toxic, No Acute Distress - Head Exam Head Exam: ATRAUMATIC, NORMOCEPHALIC - Eye Exam Eye Exam: EOMI. absent: Scleral icterus - Respiratory Exam Respiratory Exam: NORMAL BREATHING PATTERN. absent: Respiratory Distress - GI/Abdominal Exam GI & Abdominal Exam: Soft. absent: Distended, Firm, Guarding, Rigid, Tenderness - Back Exam Back Exam: absent: CVA tenderness (L), CVA tenderness (R) - Neurological Exam Neurological Exam: Alert, Awake, Oriented x3 - Skin Skin Exam: Dry, Warm Assessment and Plan - Assessment and Plan (Free Text) Assessment: 26F with resolving SBO Plan: - Cont Clamping NGT for 4 hours and then to LCS for 1 hour. - NPO w/ sips and chips - Monitor bowel fxn D/W Dr. Bebe Morgan PGY3 <Rio Spence - Last Filed: 10/12/16 20:09> Objective - Vital Signs/Intake and Output Vital Signs (last 24 hours): Temp Pulse Resp BP Pulse Ox 97.8 F 79 18 114/71 97 10/12/16 08:04 10/12/16 08:04 10/12/16 08:04 10/12/16 08:04 10/12/16 08:04 - Labs Labs: 10/11/16 06:25 10/11/16 06:25 Attending/Attestation - Attestation I have personally seen and examined this patient.: Yes I have fully participated in the care of the patient.: Yes I have reviewed all pertinent clinical information, including history, physical exam and plan: Yes Notes (Text): 10/12/16 20:07 Pt was seen and examined at bedside on 10/11/16 Agree with above note and assessment. Pt with PSBO, resolving clinically Clamp NG tube DC NG tube if out put is less than 200 cc. NPO Plan d.w pt in detail.
[2016-10-11 08:02] VITALS: RESP 18
--- NOTE | 2016-10-11 13:41 | CP.PCM.PN ---
Subjective - Date & Time of Evaluation Date of Evaluation: 10/11/16 Time of Evaluation: 11:00 - Subjective Subjective: Patient seen and evaluated bedside. Feeling better. Passing flatus. Denies any abdominal pain or discomfort. No acute issues overnight. Hemodynamically stable , afebrile.With only 200 ml output from NGT after being clamped for 4 hours. Objective - Vital Signs/Intake and Output Vital Signs (last 24 hours): Temp Pulse Resp BP Pulse Ox 98.4 F 71 18 115/72 98 10/11/16 08:01 10/11/16 08:01 10/11/16 08:01 10/11/16 08:01 10/11/16 08:01 Intake and Output: 10/11/16 10/11/16 06:59 18:59 Output Total 150 Balance -150 - Medications Medications: Current Medications Ceftriaxone Sodium 1 gm/ (Sodium Chloride) 100 mls @ 100 mls/hr IVPB DAILY [facility] Last Admin: 10/11/16 09:30 Dose: 100 mls/hr Ketorolac Tromethamine (Toradol) 15 mg IVP Q6 PRN PRN Reason: Pain, moderate (4-7) Last Admin: 10/08/16 06:17 Dose: 15 mg Ketorolac Tromethamine (Toradol) 30 mg IVP Q6 PRN PRN Reason: Pain, severe (8-10) Last Admin: 10/08/16 14:59 Dose: 30 mg Ondansetron HCl (Zofran Inj) 4 mg IVP Q6 PRN PRN Reason: Nausea/Vomiting Pantoprazole Sodium (Protonix Inj) 40 mg IVP DAILY [facility] Last Admin: 10/11/16 09:30 Dose: 40 mg Phenol/Menthol (Phenaseptic 1.4% Throat [place]) 1 spry MT Q2 PRN PRN Reason: Sore Throat - Labs Labs: 10/11/16 06:25 10/11/16 06:25 - Constitutional Appears: Well, Non-toxic, No Acute Distress - Head Exam Head Exam: ATRAUMATIC, NORMAL INSPECTION, NORMOCEPHALIC - Eye Exam Eye Exam: EOMI, Normal appearance, PERRL Pupil Exam: NORMAL ACCOMODATION - ENT Exam ENT Exam: Mucous Membranes Moist, Normal Exam - Neck Exam Neck Exam: Full ROM, Normal Inspection - Respiratory Exam Respiratory Exam: Clear to Ausculation Bilateral, NORMAL BREATHING PATTERN. absent: Rales, Rhonchi, Wheezes - Cardiovascular Exam Cardiovascular Exam: REGULAR RHYTHM, RRR, +S1, +S2. absent: JVD - GI/Abdominal Exam GI & Abdominal Exam: Soft, Normal Bowel Sounds. absent: Distended, Guarding, Rigid, Tenderness, Rebound - Rectal Exam Rectal Exam: Deferred - Extremities Exam Extremities Exam: Full ROM, Normal Capillary Refill, Normal Inspection. absent : Calf Tenderness, Pedal Edema - Back Exam Back Exam: NORMAL INSPECTION - Neurological Exam Neurological Exam: Alert, Awake, CN II-XII Intact, Oriented x3 - Psychiatric Exam Psychiatric exam: Normal Affect, Normal Mood - Skin Skin Exam: Dry, Intact, Normal Color, Warm Assessment and Plan - Assessment and Plan (Free Text) Assessment: 26 year old female with PMHx Perforated Appendectomy 01/2011 and recurrent SBO was admitted on 10/07/16 with nausea and abdominal pain secondary to Small Bowel Obstruction. Surgery is consulted . At present NGT in place , passing flatus , denies abdominal pain. (1) SBO (small bowel obstruction) improving , passing flatus only 200 ml output from NGT after being clamped Obstruction Series yesterday showed improving SBO Surgery on consult , following closely Continue to clamp NGT for [address] to slow intermittent suctioning afterwards Continue NPO , ice chips and IVF Pain management PRN (2) Prophylactic measure Protonix Bilateral SCDs ambulate (3) UTI Urine c/s: Klebsiella Continue IV Ceftriaxone x 3 days
--- NOTE | 2016-10-12 07:47 | CP.PCM.PN ---
<Adamaris Cage - Last Filed: 10/12/16 07:45> Subjective - Date & Time of Evaluation Date of Evaluation: 10/12/16 Time of Evaluation: 07:45 - Subjective Subjective: General Surgery - Dr. Spence Pt S&ERenetta [place]. Pt states her pain is gone. She is tolerating liquid diet. She had BM yesterday, normal. She denies any N/V, F/C, SOB/CP. Objective - Vital Signs/Intake and Output Vital Signs (last 24 hours): Temp Pulse Resp BP Pulse Ox 98.6 F 75 18 122/76 96 10/11/16 21:00 10/11/16 21:00 10/11/16 21:00 10/11/16 21:00 10/11/16 21:00 Intake and Output: 10/12/16 10/12/16 06:59 18:59 Intake Total 500 Output Total 300 Balance 200 - Medications Medications: Current Medications Ceftriaxone Sodium 1 gm/ (Sodium Chloride) 100 mls @ 100 mls/hr IVPB DAILY [facility] Last Admin: 10/11/16 09:30 Dose: 100 mls/hr Ketorolac Tromethamine (Toradol) 15 mg IVP Q6 PRN PRN Reason: Pain, moderate (4-7) Last Admin: 10/08/16 06:17 Dose: 15 mg Ketorolac Tromethamine (Toradol) 30 mg IVP Q6 PRN PRN Reason: Pain, severe (8-10) Last Admin: 10/08/16 14:59 Dose: 30 mg Ondansetron HCl (Zofran Inj) 4 mg IVP Q6 PRN PRN Reason: Nausea/Vomiting Pantoprazole Sodium (Protonix Inj) 40 mg IVP DAILY [facility] Last Admin: 10/11/16 09:30 Dose: 40 mg Phenol/Menthol (Phenaseptic 1.4% Throat [place]) 1 spry MT Q2 PRN PRN Reason: Sore Throat - Labs Labs: 10/11/16 06:25 10/11/16 06:25 - Constitutional Appears: No Acute Distress - Head Exam Head Exam: ATRAUMATIC, NORMAL INSPECTION, NORMOCEPHALIC - Eye Exam Eye Exam: Normal appearance - Respiratory Exam Respiratory Exam: NORMAL BREATHING PATTERN. absent: Respiratory Distress - GI/Abdominal Exam GI & Abdominal Exam: Soft. absent: Distended, Firm, Guarding, Tenderness, Rebound - Neurological Exam Neurological Exam: Alert, Oriented x3 - Psychiatric Exam Psychiatric exam: Normal Affect, Normal Mood - Skin Skin Exam: Dry, Intact Assessment and Plan - Assessment and Plan (Free Text) Assessment: 26yo F w/ partial SBO, resolving -Full liquid diet for breakfast, Regular diet for lunch -If pt. tolerating regular diet later today she is clear for D/C home from surgical standpoint -DW Dr Bebe Cage PGY2 <Rio Spence B - Last Filed: 10/12/16 20:15> Objective - Vital Signs/Intake and Output Vital Signs (last 24 hours): Temp Pulse Resp BP Pulse Ox 97.8 F 79 18 114/71 97 10/12/16 08:04 10/12/16 08:04 10/12/16 08:04 10/12/16 08:04 10/12/16 08:04 - Labs Labs: 10/11/16 06:25 10/11/16 06:25 Attending/Attestation - Attestation I have personally seen and examined this patient.: Yes I have fully participated in the care of the patient.: Yes I have reviewed all pertinent clinical information, including history, physical exam and plan: Yes Notes (Text): 10/12/16 20:14 Pt was seen and examined at bedside on 10/12/16 Agree with above note and assessment. Pt with Resolved PSBO Pt can be DC home F/U as out pt.
[2016-10-12 08:04] VITALS: BP 114/71; PULSE 79; TEMP 97.8; O2SAT 97
--- NOTE | 2016-10-12 13:59 | CP.PCM.DIS ---
Provider - Provider Date of Admission: 10/07/16 13:33 Attending physician: Jarrett Hall MD Consults: Surgery : Dr Spence Time Spent in preparation of Discharge (in minutes): 20 Diagnosis - Discharge Diagnosis (1) SBO (small bowel obstruction) Status: Acute (2) UTI (urinary tract infection) Status: Acute Hospital Course - Lab Results Lab Results: Most Recent Lab Values WBC 7.2 K/uL (4.8-10.8) 10/11/16 06:25 RBC 4.38 Mil/uL (3.80-5.20) 10/11/16 06:25 Hgb 13.1 g/dL (12.0-16.0) 10/11/16 06:25 Hct 37.8 % (34.0-47.0) 10/11/16 06:25 MCV 86.3 fl (81.0-99.0) 10/11/16 06:25 MCH 29.9 pg (27.0-31.0) 10/11/16 06:25 MCHC 34.7 g/dL (33.0-37.0) 10/11/16 06:25 RDW 12.5 % (11.5-14.5) 10/11/16 06:25 Plt Count 227 K/uL (130-400) 10/11/16 06:25 MPV 8.9 fl (7.2-11.7) 10/09/16 06:20 Neut % (Auto) 68.1 % (50.0-75.0) 10/09/16 06:20 Lymph % (Auto) 24.4 % (20.0-40.0) 10/09/16 06:20 [place] % (Auto) 6.4 % (0.0-10.0) 10/09/16 06:20 Eos % (Auto) 0.9 % (0.0-4.0) 10/09/16 06:20 Baso % (Auto) 0.2 % (0.0-2.0) 10/09/16 06:20 Neut # 5.0 K/uL (1.8-7.0) 10/09/16 06:20 Lymph # 1.8 K/uL (1.0-4.3) 10/09/16 06:20 [place] # 0.5 K/uL (0.0-0.8) 10/09/16 06:20 Eos # 0.1 K/uL (0.0-0.7) 10/09/16 06:20 Baso # 0.0 K/uL (0.0-0.2) 10/09/16 06:20 Sodium 141 mmol/l (132-148) 10/11/16 06:25 Potassium 4.0 MMOL/L (3.6-5.0) 10/11/16 06:25 Chloride 101 mmol/L (98-107) 10/11/16 06:25 Carbon Dioxide 22 mmol/L (22-30) 10/11/16 06:25 Anion Gap 22 (10-20) H 10/11/16 06:25 BUN 8 mg/dl (7-17) 10/11/16 06:25 Creatinine 0.6 mg/dL (0.7-1.2) L 10/11/16 06:25 Est GFR ( Amer) > 60 10/11/16 06:25 Est GFR (Non-Af Amer) > 60 10/11/16 06:25 Random Glucose 74 mg/dL (65-105) 10/11/16 06:25 Calcium 9.3 mg/dL (8.4-10.2) 10/11/16 06:25 Total Bilirubin 1.0 mg/dl (0.2-1.3) 10/08/16 05:30 AST 31 U/L (14-36) 10/08/16 05:30 ALT 46 U/L (9-52) 10/08/16 05:30 Alkaline Phosphatase 61 U/L (38-126) 10/08/16 05:30 Total Protein 6.5 G/DL (6.3-8.2) 10/08/16 05:30 Albumin 3.2 g/dL (3.5-5.0) L 10/08/16 05:30 Globulin 3.3 gm/dL (2.2-3.9) 10/08/16 05:30 Albumin/Globulin Ratio 1.0 (1.0-2.1) 10/08/16 05:30 Lipase 80 U/L (23-300) 10/07/16 11:20 Urine Color [place] (YELLOW) 10/07/16 11:43 Urine Clarity Slighty-cloudy (Clear) 10/07/16 11:43 Urine pH 7.0 (5.0-8.0) 10/07/16 11:43 Ur Specific [place] 1.025 (1.003-1.030) 10/07/16 11:43 Urine Protein 30 mg/dL (NEGATIVE) 10/07/16 11:43 Urine Glucose (UA) Neg mg/dL (Normal) 10/07/16 11:43 Urine Ketones Negative mg/dL (NEGATIVE) 10/07/16 11:43 Urine Blood Negative (NEGATIVE) 10/07/16 11:43 Urine Nitrate Negative (NEGATIVE) 10/07/16 11:43 Urine Bilirubin Negative (NEGATIVE) 10/07/16 11:43 Urine Urobilinogen 4.0 mg/dL (0.2-1.0) H 10/07/16 11:43 Ur Leukocyte Esterase Small [place]y/uL (Negative) 10/07/16 11:43 Urine RBC (Auto) 4 /hpf (0-3) H 10/07/16 11:43 Urine Microscopic WBC 10 /hpf (0-5) H 10/07/16 11:43 Ur Squamous Epith Cells 8 /hpf (0-5) H 10/07/16 11:43 - Hospital Course Hospital Course: 26 year old female with PMHx Perforated Appendectomy 01/2011 and recurrent SBO was admitted on 10/07/16 with nausea and abdominal pain secondary to Small Bowel Obstruction. Surgery is consulted . NGT in placed ,pt's symptoms gradually improved . Abdominal pain resolved, passing flatus and had large BM. NGT removed. Diet gradually introduced. Patient tolerated Regular diet. (1) SBO (small bowel obstruction) Passed flatus and had large BM, no abd pain, tolerated PO diet Obstruction Series showed improving SBO Surgery consulted NGT d/c (2) Prophylactic measure Protonix Bilateral SCDs ambulate (3) UTI Urine c/s: Klebsiella Received IV Ceftriaxone Discharge Exam - Head Exam Head Exam: ATRAUMATIC, NORMAL INSPECTION, NORMOCEPHALIC - Eye Exam Eye Exam: EOMI, Normal appearance, PERRL Pupil Exam: NORMAL ACCOMODATION - ENT Exam ENT Exam: Mucous Membranes Moist, Normal External Ear Exam - Neck Exam Neck exam: Full Rom - Respiratory Exam Respiratory Exam: NORMAL BREATHING PATTERN. absent: Respiratory Distress - GI/Abdominal Exam GI & Abdominal Exam: Normal Bowel Sounds, Soft. absent: Tenderness - Extremities Exam Extremities exam: full ROM, normal capillary refill, normal inspection, pedal pulses present - Back Exam Back exam: FULL ROM, NORMAL INSPECTION. absent: CVA tenderness (L), CVA tenderness (R) - Neurological Exam Neurological exam: Alert, CN II-XII Intact, Normal Gait, Oriented x3, Reflexes Normal - Psychiatric Exam Psychiatric exam: Normal Affect, Normal Mood - Skin Skin Exam: Dry, Normal Color, Warm Discharge Plan - Follow Up Plan Condition: GOOD Disposition: HOME/ ROUTINE Instructions: Bowel Obstruction (DC) Additional Instructions: ff up [facility] Clinic in 1 wk Referrals: [facility] [place] [Outside]
== END 2016-10-12 17:21 | disposition home or self-care (01) | DRG 180 ==
LOC: H.ER 10:12 → H.ERHOLD 13:33 → H.MEDSURG1 14:51
PROVIDERS: ADMIT Family Medicine; ATTEND Family Medicine
DX: K56.5 Intestinal adhesions [bands] with obstruction (postinfection) (principal); N39.0 Urinary tract infection, site not specified; B96.1 Klebsiella pneumoniae [K. pneumoniae] as the cause of diseases classified elsewhere